=== PATIENT | male | born 1965 | race Hispanic/Latino ===

== ENCOUNTER 2017-06-14 23:09 | Inpatient (IN) | payer OTHER ==
[2017-06-14 23:13] VITALS: BMI 22.4
[2017-06-14] MEDS ORDERED: Sodium Chloride 0.9% 1,000 ML IV STA (23:37)
[2017-06-15 00:14] LABS: BASO % 0.1 % (0.0-2.0); EOS # 0.3 K/uL (0.0-0.7); EOS % 3.7 % (0.0-4.0); HEMOGLOBIN 8.6 g/dL (12.0-18.0); LYMPH # 0.3 K/uL (1.0-4.3); LYMPH % 3.2 % (20.0-40.0); MEAN CELL VOLUME 89.1 fl (80.0-94.0); MEAN CORPUSCULAR HEMOGLOBIN 29.3 pg (27.0-31.0); MEAN CORPUSCULAR HGB CONC 32.9 g/dL (33.0-37.0); MEAN PLATELET VOLUME 8.2 fl (7.2-11.7); MONO # 0.8 K/uL (0.0-0.8); MONO % 9.7 % (0.0-10.0); NEUT # 6.9 K/uL (1.8-7.0); NEUT % 83.3 % (50.0-75.0); PLATELET COUNT 127 K/uL (130-400); RBC 2.92 Mil/uL (4.40-5.90); RED CELL DISTRIBUTION WIDTH 18.8 % (11.5-14.5); WHITE BLOOD COUNT 8.3 K/uL (4.8-10.8)
[2017-06-15 00:23] LABS: BLOOD UREA NITROGEN 21 mg/dl (9-20); CALCIUM 9.5 mg/dL (8.4-10.2); GFR AFRICAN-AMERICAN > 60; GFR NON-AFRICAN AMERICAN > 60
[2017-06-15 00:25] LABS: INR 1.1 (0.9-1.2); PARTIAL THROMBOPLASTIN TIME 35.9 Seconds (25.6-37.1); PROTHROMBIN TIME 12.6 Seconds (9.8-13.1)
[2017-06-15] MEDS ORDERED: MethylPREDNISolone 40 mg Vial IVP SCH (01:00)
[2017-06-15] MEDS ORDERED: Lansinoh for Breast Feeding Mothers TP STA (01:05)
[2017-06-15] MEDS ORDERED: Sodium Chloride 0.9% 1,000 ML IV STA (01:10)
--- NOTE | 2017-06-15 01:13 | ED PDOC ---
Syncope/Near Syncope/Dizziness Time Seen by Provider: 06/14/17 23:18 Chief Complaint (Nursing): Syncope Chief Complaint (Provider): Syncope, Fall History Per: Patient, Family () History/Exam Limitations: no limitations Onset/Duration Of Symptoms: Sudden Onset Current Symptoms Are (Timing): Better Fall Associated With With Symptoms: Yes Additional Complaint(s): Roel Sigala is a 51 year old male with a past medical history of metastatic gall bladder cancer s/p chemotherapy, who presents to the emergency department for evaluation of syncope and fall prior to arrival. According to patient and , he was getting out of bed and felt dizzy, then thinks he fell on the floor but does not remember. Now complaining of pain to the neck, back of head, left arm, and left shoulder. Currently denies any chest pain or shortness of breath. Patient reports feeling generally weak, and for the past 2- 3 days has had difficulty moving his left arm on and off. Per , he has also had an unsteady gait and has had several falls this week, but this is the first one with a head injury. Yesterday he developed a rash all over his body, and was instructed to stop taking his Gabapentin. Patient last received chemotherapy in April 2017 at [facility]. PMD: Provider in [place] Oncologist: Dr. Frankel, [facility] Past Medical History Reviewed: Historical Data, Nursing Documentation, Vital Signs Vital Signs: Last Vital Signs Temp 98.4 F 06/14/17 23:14 Pulse 99 H 06/14/17 23:14 Resp 18 06/14/17 23:14 BP 106/79 06/14/17 23:14 Pulse Ox 100 06/14/17 23:14 - Medical History PMH: Deep Vein Thrombosis, HTN, Malignancy (gall bladder cancer with metastasis , on chemo), Pulmonary Embolism - Surgical History Surgical History: Cholecystectomy - Family History Family History: States: Unknown Family Hx - Home Medications Home Medications: Ambulatory Orders Medication Instructions Recorded Acetaminophen [Tylenol 325mg tab] 3 tab PO Q8 06/15/17 Celecoxib [celeBREX] 200 mg PO BID PRN 06/15/17 Cyclobenzaprine [Flexeril] 5 mg PO TID PRN 06/15/17 Docusate Sodium [Thao' 100 mg PO TID 06/15/17 Laxative] Fentanyl 1 each TD Q72 06/15/17 Gabapentin [Neurontin] 600 mg PO Q8 06/15/17 HYDROmorphone [Dilaudid] 4 mg PO Q4 PRN 06/15/17 Omeprazole [Omeprazole] 20 mg PO BID 06/15/17 Ondansetron [Zofran] 8 mg PO Q8 PRN 06/15/17 Polyethylene Glycol 3350 [Gavilax] 17 g PO DAILY 06/15/17 Rivaroxaban [Xarelto] 1 tab PO DAILY 06/15/17 Sennosides [Senna] 1 tab PO DAILY 06/15/17 Sucralfate [Carafate] 1 gm PO BID 06/15/17 - Allergies Allergies/Adverse Reactions: Allergies Allergy/AdvReac Type Severity Reaction Status Date / Time No Known Allergies Allergy Verified 06/14/17 23:13 Review of Systems ROS Statement: Except As Marked, All Systems Reviewed And Found Negative Constitutional: Positive for: Weakness (generalized) Cardiovascular: Negative for: Chest Pain Respiratory: Negative for: Shortness of Breath Gastrointestinal: Negative for: Melena, Hematochezia, Hematemesis Musculoskeletal: Positive for: Neck Pain, Shoulder Pain (left), Arm Pain (left) Skin: Positive for: Rash Neurological: Positive for: Weakness (to left arm), Incoordination (unsteady gait), Headache, Dizziness (with syncopal episode and fall) Physical Exam - Reviewed Nursing Documentation Reviewed: Yes Vital Signs Reviewed: Yes - Physical Exam Appears: Positive for: Non-toxic, No Acute Distress Head Exam: Positive for: NORMOCEPHALIC (w/ swelling to the occipital skull, non- tender, no laceration or bleeding). Negative for: ATRAUMATIC Skin: Positive for: Rash (diffuse macular rash to extremities and trunk) Eye Exam: Positive for: EOMI, Normal appearance, PERRL ENT: Positive for: Normal ENT Inspection Neck: Positive for: Pain On Movement Of Neck (with midline tenderness to c-spine ) Cardiovascular/Chest: Positive for: Regular Rate, Rhythm, Other (Port-a-cath in place at right chest). Negative for: Murmur Respiratory: Positive for: Normal Breath Sounds. Negative for: Accessory Muscle Use, Respiratory Distress Gastrointestinal/Abdominal: Positive for: Normal Exam, Soft. Negative for: Tenderness, Distended Back: Positive for: Normal Inspection. Negative for: Vertebral Tenderness Extremity: Positive for: Normal ROM, Other (Abrasion noted to left elbow). 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 Negative for: Aphasia, Facial Droop - Laboratory Results Result Diagrams: 06/15/17 00:11 06/15/17 00:11 - ECG ECG: Positive for: Interpreted By Me, Viewed By Me ECG Rhythm: Positive for: Normal QRS, Sinus Rhythm. Negative for: ST/T Changes Interpretation Of Abn EKG: Left Ventricular Hypertrophy Rate: 84 O2 Sat by Pulse Oximetry: 100 (RA) Pulse Ox Interpretation: Normal Medical Decision Making Medical Decision Making: Initial Impression: Syncope, Fall with Head Injury, Arm and Shoulder Injury, Weakness of Left Arm, Multiple Falls Differential includes: intracranial bleeding, cardiac arrhythmia, pulmonary embolism, dehydration, peripheral palsy in left arm, also concerned for fractures of left shoulder/arm, and metastasis to brain Time: 23:34 Initial Plan: --CT Head w/o contrast --CT Cervical Spine w/o contrast --EKG --BMP --Troponin I --CBC w/ differential --D dimer --PTT --Prothrombin time --NS IV 1000 ml at 1000 mls/hr --X-Ray Left Elbow --X-Ray Left Shoulder --Reevaluation CT Head FINDINGS: Brain: Unremarkable. No hemorrhage. No significant white matter disease. No edema. Ventricles: Unremarkable. No ventriculomegaly. Bones/joints: Unremarkable. No acute fracture. Soft tissues: Unremarkable. Sinuses: Unremarkable as visualized. No acute sinusitis. Mastoid air cells: Unremarkable as visualized. No mastoid effusion. IMPRESSION: No acute intracranial finding. Thank you for allowing us to participate in the care of your patient. Dictated and Authenticated by: Obi Sultana MD 06/15/2017 12:58 AM Eastern Time ([place] & [place]) CT Cervical Spine FINDINGS: Vertebrae: Unremarkable. No acute fracture. Discs/spinal canal/neural foramina: No acute findings. No spinal canal stenosis. Soft tissues: Unremarkable. Lung apices: Unremarkable as visualized. IMPRESSION: No acute cervical spine finding. Thank you for allowing us to participate in the care of your patient. Dictated and Authenticated by: Obi Sultana MD 06/15/2017 1:01 AM Eastern Time ([place] & [place]) Time: Patient will be hospitalized for observation for syncope, under the service of Dr. Valenzuela. Jamey is eleavated. Patient is currently already on Xarelto for DVT/PE treatment. Patient is admitted to telemetry. Scribe Attestation: Documented by Alejandra Dorman, acting as a scribe for Brandi Shelton MD Provider Scribe Attestation: All medical record entries made by the Scribe were at my direction and personally dictated by me. I have reviewed the chart and agree that the record accurately reflects my personal performance of the history, physical exam, medical decision making, and the department course for this patient. I have also personally directed, reviewed, and agree with the discharge instructions and disposition. Disposition - Clinical Impression Clinical Impression: Anemia, Syncope, Hyponatremia, Multiple falls, Shoulder injury, Left arm weakness - Patient ED Disposition Is Patient to be Admitted: Yes Discussed With : Tabatha Valenzuela Doctor Will See Patient In The: Hospital Counseled Patient/Family Regarding: Studies Performed, Diagnosis - Disposition Disposition Time: Condition: FAIR - Pt Status Changed To: Hospital Disposition Of: Observation - POA Present On Arrival: Falls Or Trauma
[2017-06-15 01:50] LABS: ANISOCYTOSIS SLIGHT; EOSINOPHIL 1 % (0-7); HYPOCHROMIC MODERATE; LYMPHOCYTE 2 % (20-50); MONOCYTE 3 % (0-10); NEUTROPHIL 94 % (42-75); OVALOCYTES SLIGHT; PLATELET ESTIMATE SLIGHTLY DECREASED (NORMAL); TOTAL CELLS COUNTED 100
[2017-06-15] MEDS ORDERED: Influenza Vaccine 18yr & older 0.5 ML/45 MCG SYR IM ONE (03:50)
[2017-06-15] MEDS: Sucralfate 1 gm/10 ml Oral Susp UD PO SCH ×2 (09:13→19:05)
[2017-06-15] MEDS: Pantoprazole 40 mg EC Tab PO SCH (09:14)
[2017-06-15] MEDS: POLYETHYLENE GLYCOL 3350 17 GM/Dose PACKET PO SCH (09:15)
--- NOTE | 2017-06-15 10:12 | CT ---
PROCEDURE: CT HEAD WITHOUT CONTRAST. HISTORY: syncope COMPARISON: None available. TECHNIQUE: Axial computed tomography images were obtained through the head/brain without intravenous contrast. Radiation dose: Total exam DLP = 1042.3 mGy-cm. This CT exam was performed using one or more of the following dose reduction techniques: Automated exposure control, adjustment of the mA and/or kV according to patient size, and/or use of iterative reconstruction technique. FINDINGS: HEMORRHAGE: No intracranial hemorrhage. BRAIN: No mass effect or edema. No atrophy or chronic microvascular ischemic changes. VENTRICLES: Unremarkable. No hydrocephalus. CALVARIUM: Unremarkable. PARANASAL SINUSES: Unremarkable as visualized. No significant inflammatory changes. MASTOID AIR CELLS: Unremarkable as visualized. No inflammatory changes. OTHER FINDINGS: None. IMPRESSION: No acute intracranial pathology.
--- NOTE | 2017-06-15 10:21 | CT ---
PROCEDURE: CT Cervical Spine without contrast HISTORY: <neck pain injury> COMPARISON: None available. TECHNIQUE: Axial computed tomography images were obtained of the cervical spine without the use of intravenous contrast. Coronal and sagittal reformatted images were created and reviewed. Radiation dose: Total exam DLP = 542.9 mGy-cm. This CT exam was performed using one or more of the following dose reduction techniques: Automated exposure control, adjustment of the mA and/or kV according to patient size, and/or use of iterative reconstruction technique. FINDINGS: VERTEBRAE: No fracture. Normal alignment. No destructive bony lesion. DISCS/SPINAL CANAL/NEURAL FORAMINA: No significant central canal or neural foraminal stenosis. Discs heights are grossly preserved. PARASPINAL SOFT TISSUES: Unremarkable. OTHER FINDINGS: 5 millimeter left apical lung nodule. Partially imaged right internal jugular access venous catheter. IMPRESSION: No acute fracture. 5 millimeter left apical lung nodule. Dedicated CT scan of the chest can be obtained for further evaluation as clinically warranted. ER notification submitted electronically.
[2017-06-15 10:41] LABS: HEMOGLOBIN 7.7 g/dL (12.0-18.0); MEAN CORPUSCULAR HGB CONC 32.3 g/dL (33.0-37.0); RBC 2.64 Mil/uL (4.40-5.90); RED CELL DISTRIBUTION WIDTH 19.2 % (11.5-14.5); WHITE BLOOD COUNT 7.9 K/uL (4.8-10.8)
[2017-06-15 10:54] LABS: ALBUMIN 2.8 g/dL (3.5-5.0)
[2017-06-15 10:58] LABS: ALB/GLOB RATIO 0.9 (1.0-2.1)
[2017-06-15 11:04] LABS: TROPONIN I 0.015 ng/mL (0.00-0.120)
--- NOTE | 2017-06-15 11:17 | CARD ---
APPROVED REPORT EXAM: Two-dimensional and M-mode echocardiogram with Doppler and color Doppler. INDICATION Syncope 2D DIMENSIONS IVSd1.48 (0.7-1.1cm)LVDd4.35 (3.9-5.9cm) PWd1.49 (0.7-1.1cm)IVSs1.73 (0.8-1.2cm) LVDs3.29 (2.5-4.0cm)FS (%) 24.5 % PWs2.04 (0.8-1.2cm)LVEF (%)55.0 (>50%) M-Mode DIMENSIONS Left Atrium (MM)3.20 (2.5-4.0cm)Aortic Root2.88 (2.2-3.7cm) Aortic Cusp Exc.1.28 (1.5-2.0cm) Mitral Valve MV E Sajhmiok40.5cm/sMV DECEL [id number] A Mxqtflhm00.7cm/s MV BII47xoU/A ratio0.8MVA (PHT)3.98cm2 TDI E/Lateral E'0.0E/Medial E'0.0 Tricuspid Valve TR Peak Jetntixb486ag/sRAP [id number] Peak Gr.10mmHg [id number] LEFT VENTRICLE The left ventricle is normal size. There is mild concentric left ventricular hypertrophy. The left ventricular function is normal. The left ventricular ejection fraction is within the normal range. There is normal LV segmental wall motion. Transmitral Doppler flow pattern is Grade I-abnormal relaxation pattern. RIGHT VENTRICLE The right ventricle is normal size. There is normal right ventricular wall thickness. The right ventricular systolic function is normal. ATRIA The left atrium size is normal. The right atrium size is normal. AORTIC VALVE The aortic valve is normal in structure. No aortic regurgitation is present. There is no aortic valvular stenosis. MITRAL VALVE The mitral valve is normal in structure. There is no mitral valve stenosis. There is no mitral valve regurgitation noted. TRICUSPID VALVE The tricuspid valve is normal in structure. There is no tricuspid valve regurgitation noted. PULMONIC VALVE The pulmonary valve is normal in structure. There is no pulmonic valvular regurgitation. GREAT VESSELS The aortic root is normal in size. The IVC was not visualized. PERICARDIAL EFFUSION The pericardium appears normal. <Conclusion> The left ventricle is normal size. There is mild concentric left ventricular hypertrophy. The left ventricular function is normal. The left ventricular ejection fraction is within the normal range. There is normal LV segmental wall motion. Transmitral Doppler flow pattern is Grade I-abnormal relaxation pattern.
--- NOTE | 2017-06-15 11:41 | RAD ---
PROCEDURE: Radiographs of the left elbow. HISTORY: elbow pain COMPARISON: No prior. FINDINGS: BONES: No acute fracture. JOINTS: Unremarkable bowl. SOFT TISSUES: Normal. JOINT EFFUSION: None. OTHER FINDINGS: Enthesophyte at the insertion of the triceps tendon IMPRESSION: No demonstrated fracture or dislocation.
--- NOTE | 2017-06-15 11:42 | RAD ---
PROCEDURE: Radiographs of the Left Shoulder HISTORY: shoulder pain COMPARISON: No prior. FINDINGS: BONES: No acute fracture. JOINTS: Unremarkable. SOFT TISSUES: Normal. OTHER FINDINGS: None. IMPRESSION: No demonstrated fracture or dislocation.
--- NOTE | 2017-06-15 16:30 | CP.PCM.HP ---
History of Present Illness - History of Present Illness History of Present Illness: CC:Passing out and AMS History of Present Illness: A 51 year old male with a past medical history of metastatic gall bladder cancer s/p chemotherapy, who presents to the emergency department for evaluation of syncope and fall prior to arrival. According to patient and , he was getting out of bed and felt dizzy, then thinks he fell on the floor but does not remember. He had similar kind of episodes of falls after feeling dizzy which happended with change of posture from sitting to standing. Now complaining of pain to the neck, back of head, left arm, and left shoulder. Currently denies any chest pain or shortness of breath. Patient reports feeling generally weak, and for the past 2-3 days has had difficulty moving his left arm on and off. Per , he has also had an unsteady gait and has had several falls this week, but this is the first one with a head injury. Yesterday he developed a rash all over his body which started on the upper trunk and arm which progressively involved the whole body., and was instructed to stop taking his Gabapentin. Patient last received chemotherapy in April 2017 at [facility]. As per the , His Cancer continued to progress depsite treatment [facility], and would like him to be transferred when he is stable.He had MRI of the brain done 1 week ago with no mets to the brain.The states she knows that the cancer has spread to the Liver, Lungs and bones. Present on Admission - Present on Admission Any Indicators Present on Admission: No History of DVT/PE: No History of Uncontrolled Diabetes: No Urinary Catheter: No Decubitus Ulcer Present: No Review of Systems - Review of Systems All systems: reviewed and no additional remarkable complaints except Review of Systems: as per HPI Past Patient History - Past Medical History & Family History Past Medical History?: Yes Past Family History: Reviewed and not pertinent - Past Social History Smoking Status: Light Smoker < 10 Cigarettes Daily Alcohol: Occasional Drugs: Denies - CARDIAC Hx Hypertension: Yes - PULMONARY Hx Pulmonary Embolism: Yes - HEMATOLOGICAL/ONCOLOGICAL Hx AIDS: No Hx Blood Transfusions: Yes Hx Blood Transfusion Reaction: No Hx Cancer: Yes (Satge IV Gallbladder Cancer) Hx Human Immunodeficiency Virus (HIV): No Other/Comment: DVT right leg - MUSCULOSKELETAL/RHEUMATOLOGICAL Hx Falls: Yes (Multiple) - GASTROINTESTINAL Other/Comment: metastatic gallbaldder cancer - PSYCHIATRIC Hx Substance Use: No - SURGICAL HISTORY Hx Cholecystectomy: Yes - ANESTHESIA Hx Anesthesia: Yes Hx Anesthesia Reactions: No Meds Allergies/Adverse Reactions: Allergies Allergy/AdvReac Type Severity Reaction Status Date / Time No Known Allergies Allergy Verified 06/14/17 23:13 Physical Exam - Constitutional Appears: In Acute Distress, Older Than Stated Age, Confused - Head Exam Head Exam: ATRAUMATIC, NORMAL INSPECTION, NORMOCEPHALIC - Eye Exam Eye Exam: EOMI, Normal appearance, PERRL - ENT Exam ENT Exam: Mucous Membranes Dry - Neck Exam Neck exam: Positive for: Full Rom - Respiratory Exam Respiratory Exam: Clear to Auscultation Bilateral, NORMAL BREATHING PATTERN - Cardiovascular Exam Cardiovascular Exam: Tachycardia, +S1, +S2 - GI/Abdominal Exam GI & Abdominal Exam: Soft. absent: Guarding, Rigid, Tenderness - Back Exam Back exam: rash noted - Neurological Exam Neurological exam: Abnormal Gait, Altered, Motor Sensory Deficit Additional comments: B/L LE, and Left Upper extremity weakness with Power 2-3/5. . - Psychiatric Exam Psychiatric exam: Anxious - Skin Skin Exam: Dry, Rash (Generalized Maculopapular rashes.) Results - Vital Signs Recent Vital Signs: Last Vital Signs Temp 97.4 F L 06/15/17 16:15 Pulse 93 H 06/15/17 16:15 Resp 16 06/15/17 16:15 BP 102/60 06/15/17 16:15 Pulse Ox 95 06/15/17 16:15 - Labs Result Diagrams: 06/19/17 04:25 06/19/17 04:25 Labs: Laboratory Results - last 24 hr 06/15/17 06/15/17 06/15/17 00:11 00:11 00:11 WBC 8.3 RBC 2.92 L Hgb 8.6 L Hct 26.0 L MCV 89.1 MCH 29.3 MCHC 32.9 L RDW 18.8 H Plt Count 127 L MPV 8.2 Neut % (Auto) 83.3 H Lymph % (Auto) 3.2 L [place] % (Auto) 9.7 Eos % (Auto) 3.7 Baso % (Auto) 0.1 Neut # 6.9 Lymph # 0.3 L [place] # 0.8 Eos # 0.3 Baso # 0.0 Neutrophils % (Manual) 94 H Lymphocytes % (Manual) 2 L Monocytes % (Manual) 3 Eosinophils % (Manual) 1 Platelet Estimate Slightly decreased L Hypochromasia (manual) Moderate Anisocytosis (manual) Slight Ovalocytes Slight PT 12.6 INR 1.1 APTT 35.9 D-Dimer, Quantitative 884 H Sodium 124 L Potassium 3.5 L Chloride 85 L Carbon Dioxide 31 H Anion Gap 12 BUN 21 H Creatinine 1.0 Est GFR ( Amer) > 60 Est GFR (Non-Af Amer) > 60 Random Glucose 111 H Calcium 9.5 Total Bilirubin AST ALT Alkaline Phosphatase Troponin I 0.0140 Total Protein Albumin Globulin Albumin/Globulin Ratio 06/15/17 06/15/17 10:35 10:35 WBC 7.9 RBC 2.64 L Hgb 7.7 L Hct 23.7 L MCV 90.0 MCH 29.0 MCHC 32.3 L RDW 19.2 H Plt Count 121 L MPV Neut % (Auto) Lymph % (Auto) [place] % (Auto) Eos % (Auto) Baso % (Auto) Neut # Lymph # [place] # Eos # Baso # Neutrophils % (Manual) Lymphocytes % (Manual) Monocytes % (Manual) Eosinophils % (Manual) Platelet Estimate Hypochromasia (manual) Anisocytosis (manual) Ovalocytes PT INR APTT D-Dimer, Quantitative Sodium 127 L Potassium 3.6 Chloride 92 L Carbon Dioxide 28 Anion Gap 11 BUN 21 H Creatinine 1.5 Est GFR ( Amer) 60 Est GFR (Non-Af Amer) 49 Random Glucose 109 Calcium 9.0 Total Bilirubin 0.8 AST 39 ALT 41 Alkaline Phosphatase 123 Troponin I 0.0150 Total Protein 5.9 L Albumin 2.8 L Globulin 3.2 Albumin/Globulin Ratio 0.9 L - Imaging and Cardiology CT scan - head Status: Report reviewed by me Additional comment: No Intracranial Acute Abnormality Assessment & Plan (1) Syncope Assessment and Plan: AMS, Recurrent Falls, Lower Extremities Weakness: Orthostatic Hypotension, Hyponatremia, R/O Brain Mets (Recent Brain MRI with no mets) Left Shoulder and Neck pain with Left Upper Extremity Weakness IVF Bolus and Maintenance Fluid with 0.9NS Sumaya Fall Precaution Serial Trop and EKG TTE MRI of C- Spine and Left Shoulder Monitor BMP Status: Acute Priority: High (2) Metastasis from gallbladder cancer Assessment and Plan: Wide spread Mets including the liver and Lungs Progressed despite Multiple Treatments Anemia most likely due to recent [place] and ACD Poor prognosis Will monitor H/H and transfuse if Hg drop<7 or at filling technician discretion Hem/Onc consulted Status: Acute Priority: High (3) Hyponatremia Assessment and Plan: IVF 0.9 NS Serum and Urine osmolality Monitor BMP Status: Acute Priority: High (4) History of pulmonary embolism Assessment and Plan: DVT; High D-Dimer (d0ne in the ER) Low dose of Xarelto CT Angio Chest R/O PE D/w the and agrees with the above discussed palns, and she would like to take her to [facility] After he is stabilized for Transfer Status: Acute Priority: Medium
[2017-06-15] MEDS ORDERED: DiphenhydrAMINE 50 mg/ml Inj IVP PRN (17:13)
--- NOTE | 2017-06-15 17:49 | CARD ---
APPROVED REPORT EKG Measurement Heart [id number] HI 130P [id number] <Conclusion> Normal sinus rhythm Voltage criteria for left ventricular hypertrophy Prolonged QT Abnormal ECG
[2017-06-15] MEDS ORDERED: Sodium Chloride 0.9% 50 ML IV ONE (19:23)
[2017-06-15] MEDS ORDERED: Iodixanol 320 MG/ML 100 ML BOTTLE IV ONE (19:23)
--- NOTE | 2017-06-15 20:17 | CP.PCM.CON ---
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 Frankel, admitted s/p fall, found to be anemic and thrombocytopenic. He was initially diagnosed and treated in 1991 but had recurred in 2013. The patient reports to chemotherapy about 2 weeks ago which consists of both oral and IV treatment. He does not remember the names of his treatment. He does admit to back and rib pain after his fall. He has no headache. He denies fevers and chills and has no abnormal bleeding and bruising. He does report to a rash over his body which may be from a medication he took. Past medical history: Stage IV cholangiocarcinoma Past surgical history: Portacath, cholecystectomy and liver resection Family history: Gallbladder cancer and mother and fathers side of the family Social history: 4 cigs daily, denies alcohol, and illicit drug use. Allergies: NKA Review of systems: All remaining review of systems including HEENT, cardiovascular, respiratory, gastrointestinal, genitourinary, musculoskeletal, dermatologic, neurologic, and psychiatric are negative unless mentioned in the HPI. Past Patient History - Past Medical History & Family History Past Medical History?: Yes - Past Social History Smoking Status: Light Smoker < 10 Cigarettes Daily - CARDIAC Hx Hypertension: Yes - PULMONARY Hx Pulmonary Embolism: Yes - HEMATOLOGICAL/ONCOLOGICAL Hx AIDS: No Hx Blood Transfusions: Yes Hx Blood Transfusion Reaction: No Hx Human Immunodeficiency Virus (HIV): No Other/Comment: DVT right leg - MUSCULOSKELETAL/RHEUMATOLOGICAL Hx Falls: Yes - GASTROINTESTINAL Other/Comment: metastatic gallbaldder cancer - PSYCHIATRIC Hx Substance Use: No - SURGICAL HISTORY Hx Cholecystectomy: Yes - ANESTHESIA Hx Anesthesia: Yes Hx Anesthesia Reactions: No Meds Allergies/Adverse Reactions: Allergies Allergy/AdvReac Type Severity Reaction Status Date / Time No Known Allergies Allergy Verified 06/14/17 23:13 - Medications Medications: Current Medications Acetaminophen (Tylenol 325mg Tab) 975 mg PO Q8@0600,1400,2200 [facility] Last Admin: 06/15/17 14:00 Dose: Not Given Cyclobenzaprine HCl (Flexeril) 5 mg PO TID PRN PRN Reason: Muscle spasm Last Admin: 06/15/17 09:17 Dose: 5 mg Diphenhydramine HCl (Benadryl) 25 mg IVP Q6 PRN PRN Reason: Itching / Pruritus Docusate Sodium (Colace) 100 mg PO TID [facility] Last Admin: 06/15/17 19:05 Dose: 100 mg Fentanyl (Duragesic) 1 patch TD Q72 [facility] Last Admin: 06/15/17 09:25 Dose: 1 patch Hydromorphone HCl (Dilaudid) 4 mg PO Q4 PRN PRN Reason: Pain, severe (8-10) Last Admin: 06/15/17 19:09 Dose: 4 mg Methylprednisolone (Solu-Medrol) 40 mg IVP Q8H [facility] Ondansetron HCl (Zofran Inj) 4 mg IVP Q6 PRN PRN Reason: Nausea/Vomiting Pantoprazole Sodium (Protonix Ec Tab) 40 mg PO DAILY [facility] Last Admin: 06/15/17 09:14 Dose: 40 mg Polyethylene Glycol (Miralax) 17 gm PO DAILY [facility] Last Admin: 06/15/17 09:15 Dose: 17 gm Rivaroxaban (Xarelto) 10 mg PO DAILY [facility] PRN Reason: Protocol Last Admin: 06/15/17 15:23 Dose: 10 mg Sennosides (Senokot Tab) 1 mg PO DAILY [facility] Last Admin: 06/15/17 09:00 Dose: Not Given Sucralfate (Carafate Oral Susp) 1 gm PO BID [facility] Last Admin: 06/15/17 19:05 Dose: 1 gm Physical Exam - Head Exam Head Exam: ATRAUMATIC - Eye Exam Eye Exam: Normal appearance - ENT Exam ENT Exam: Mucous Membranes Dry - Respiratory Exam Respiratory Exam: NORMAL BREATHING PATTERN - Cardiovascular Exam Cardiovascular Exam: +S1, +S2 - GI/Abdominal Exam GI & Abdominal Exam: Normal Bowel Sounds - Extremities Exam Extremities exam: Positive for: normal inspection - Psychiatric Exam Psychiatric exam: Depressed, Flat Affect - Skin Skin Exam: Warm Results - Vital Signs Recent Vital Signs: Last Vital Signs Temp 97.6 F 06/15/17 19:15 Pulse 91 H 06/15/17 19:15 Resp 20 06/15/17 19:15 BP 125/69 06/15/17 19:15 Pulse Ox 94 L 06/15/17 19:15 - Labs Result Diagrams: 06/15/17 10:35 06/15/17 10:35 Labs: Laboratory Results - last 24 hr 06/15/17 06/15/17 06/15/17 00:11 00:11 00:11 WBC 8.3 RBC 2.92 L Hgb 8.6 L Hct 26.0 L MCV 89.1 MCH 29.3 MCHC 32.9 L RDW 18.8 H Plt Count 127 L MPV 8.2 Neut % (Auto) 83.3 H Lymph % (Auto) 3.2 L [place] % (Auto) 9.7 Eos % (Auto) 3.7 Baso % (Auto) 0.1 Neut # 6.9 Lymph # 0.3 L [place] # 0.8 Eos # 0.3 Baso # 0.0 Neutrophils % (Manual) 94 H Lymphocytes % (Manual) 2 L Monocytes % (Manual) 3 Eosinophils % (Manual) 1 Platelet Estimate Slightly decreased L Hypochromasia (manual) Moderate Anisocytosis (manual) Slight Ovalocytes Slight PT 12.6 INR 1.1 APTT 35.9 D-Dimer, Quantitative 884 H Sodium 124 L Potassium 3.5 L Chloride 85 L Carbon Dioxide 31 H Anion Gap 12 BUN 21 H Creatinine 1.0 Est GFR ( Amer) > 60 Est GFR (Non-Af Amer) > 60 Random Glucose 111 H Calcium 9.5 Total Bilirubin AST ALT Alkaline Phosphatase Troponin I 0.0140 Total Protein Albumin Globulin Albumin/Globulin Ratio Blood Type Antibody Screen BBK History Checked 06/15/17 06/15/17 06/15/17 10:35 10:35 18:55 WBC 7.9 RBC 2.64 L Hgb 7.7 L Hct 23.7 L MCV 90.0 MCH 29.0 MCHC 32.3 L RDW 19.2 H Plt Count 121 L MPV Neut % (Auto) Lymph % (Auto) [place] % (Auto) Eos % (Auto) Baso % (Auto) Neut # Lymph # [place] # Eos # Baso # Neutrophils % (Manual) Lymphocytes % (Manual) Monocytes % (Manual) Eosinophils % (Manual) Platelet Estimate Hypochromasia (manual) Anisocytosis (manual) Ovalocytes PT INR APTT D-Dimer, Quantitative Sodium 127 L Potassium 3.6 Chloride 92 L Carbon Dioxide 28 Anion Gap 11 BUN 21 H Creatinine 1.5 Est GFR ( Amer) 60 Est GFR (Non-Af Amer) 49 Random Glucose 109 Calcium 9.0 Total Bilirubin 0.8 AST 39 ALT 41 Alkaline Phosphatase 123 Troponin I 0.0150 0.0170 Total Protein 5.9 L Albumin 2.8 L Globulin 3.2 Albumin/Globulin Ratio 0.9 L Blood Type Antibody Screen BBK History Checked 06/15/17 18:55 WBC RBC Hgb Hct MCV MCH MCHC RDW Plt Count MPV Neut % (Auto) Lymph % (Auto) [place] % (Auto) Eos % (Auto) Baso % (Auto) Neut # Lymph # [place] # Eos # Baso # Neutrophils % (Manual) Lymphocytes % (Manual) Monocytes % (Manual) Eosinophils % (Manual) Platelet Estimate Hypochromasia (manual) Anisocytosis (manual) Ovalocytes PT INR APTT D-Dimer, Quantitative Sodium Potassium Chloride Carbon Dioxide Anion Gap BUN Creatinine Est GFR ( Amer) Est GFR (Non-Af Amer) Random Glucose Calcium Total Bilirubin AST ALT Alkaline Phosphatase Troponin I Total Protein Albumin Globulin Albumin/Globulin Ratio Blood Type A POSITIVE Antibody Screen Negative BBK History Checked No verified bt Assessment & Plan (1) Anemia Assessment and Plan: will type and crossmatch 2 units if hgb < 8 tomorrow, will plan to transfuse retic count, b12, folate, ferritin, FOBT to further characterize may have an element of anemia from chemotherapy Status: Acute (2) Thrombocytopenia Assessment and Plan: may be related to recent chemotherapy Status: Acute (3) Cholangiocarcinoma Assessment and Plan: stage IV per patient, repoorts lung and liver metastasis on outpatient chemotherapy at [facility] outpatient f/u with primary oncologist Thank you for this interesting consult. Status: Acute
[2017-06-16] MEDS ORDERED: methylPREDNISolone 40 MG in Sodium Chloride 0.9% 50 ML IV SCH (01:00)
[2017-06-16 07:42] LABS: BASO % 0.2 % (0.0-2.0); EOS % 0.1 % (0.0-4.0); HEMOGLOBIN 7.5 g/dL (12.0-18.0); LYMPH # 0.2 K/uL (1.0-4.3); LYMPH % 2.1 % (20.0-40.0); MEAN CELL VOLUME 90.1 fl (80.0-94.0); MEAN CORPUSCULAR HEMOGLOBIN 28.8 pg (27.0-31.0); MEAN PLATELET VOLUME 8.4 fl (7.2-11.7); MONO # 0.2 K/uL (0.0-0.8); MONO % 2.6 % (0.0-10.0); NEUT # 8.2 K/uL (1.8-7.0); RBC 2.59 Mil/uL (4.40-5.90); RED CELL DISTRIBUTION WIDTH 19.1 % (11.5-14.5); WHITE BLOOD COUNT 8.7 K/uL (4.8-10.8)
[2017-06-16] MEDS: Sucralfate 1 gm/10 ml Oral Susp UD PO SCH ×2 (09:21→17:40)
[2017-06-16] MEDS: Pantoprazole 40 mg EC Tab PO SCH (09:22)
[2017-06-16] MEDS: POLYETHYLENE GLYCOL 3350 17 GM/Dose PACKET PO SCH (09:22)
[2017-06-16] MEDS: MethylPREDNISolone 40 mg Vial IVP SCH ×2 (09:23→17:40)
[2017-06-16 11:41] LABS: FOLATE 6.2 ng/mL
--- NOTE | 2017-06-16 14:03 | CT ---
PROCEDURE: CT Chest with contrast (Pulmonary Angiogram) HISTORY: R/O PE COMPARISON: None available. TECHNIQUE: Axial computed tomography images were obtained of the chest in the pulmonary arterial phase of enhancement. Coronal and sagittal reformatted images were created and reviewed. Intravenous contrast dose: Visipaque 320, 80 cc. Radiation dose: Total exam DLP = 449.63 mGy-cm. This CT exam was performed using one or more of the following dose reduction techniques: Automated exposure control, adjustment of the mA and/or kV according to patient size, and/or use of iterative reconstruction technique. FINDINGS: PULMONARY ARTERIES: Unremarkable. No pulmonary embolism. AORTA: No acute findings. No thoracic aortic aneurysm. LUNGS: Numerous pulmonary nodules are scattered bilaterally which are nonspecific. There is a bright broad differs diagnosis many from infectious or inflammatory causes or even neoplasm. Further clinical correlation is advised these nodules appear quite small, generally under 1 cm greatest dimension. However, there is a 1.3 x 1.2 cm spiculated nodule at superior segment right lower lobe in image 58 series 5 suspicious for neoplasm and metastatic disease is favored. There is compressive atelectasis related to the left pleural effusion. Underlying infiltrate is not excluded. Remaining lung schilling are otherwise clear. Central airways appear clear. No dominant mass is appreciable. PLEURAL SPACES: A moderate left pleural effusions identified, trace on the right. Trace pericardial effusion is identified. HEART: Unremarkable. No cardiomegaly. LYMPH NODES: Mild left hilar adenopathy is appreciate including a 1.3 x 2.2 cm left perihilar lymph node. BONES, CHEST WALL: Unremarkable. No fracture or destructive lesion OTHER FINDINGS: Right-sided life port catheter in position with tip of catheter terminating at the right atrium. 6.7 x 4.7 cm lucent lesion right lobe liver inferiorly, suspicious for metastatic lesion. Prior cholecystectomy. IMPRESSION: 1. No CT evidence to suggest pulmonary embolus at this time. 2. Metastatic disease is scattered throughout the bilateral lung schilling with dominant nodule appearing at the superior segment right lower lobe 1.3 cm greatest dimension. Left hilar adenopathy is mild. 3. Moderate left pleural effusion exerting compression atelectasis the left lower lobe with underlying infiltrate not completely excluded. 4. 6.7 cm likely metastasis right lobe liver. 5. Prior cholecystectomy.
[2017-06-16 16:16] LABS: ALB/GLOB RATIO 0.9 (1.0-2.1); CALCIUM 9.3 mg/dL (8.4-10.2)
--- NOTE | 2017-06-17 00:12 | CP.PCM.PN ---
Subjective - Date & Time of Evaluation Date of Evaluation: 06/16/17 Time of Evaluation: 13:10 - Subjective Subjective: Seen and examined at the bed side. No change since the admission. Patient is too weak to be discharged and kidney function abnormality which will need further monitoring. Objective - Vital Signs/Intake and Output Vital Signs (last 24 hours): Temp Pulse Resp BP Pulse Ox 97.9 F 79 18 138/78 95 06/17/17 00:09 06/17/17 00:09 06/17/17 00:09 06/17/17 00:09 06/17/17 00:09 - Medications Medications: Current Medications Acetaminophen (Tylenol 325mg Tab) 975 mg PO Q8@0600,1400,2200 [facility] Last Admin: 06/16/17 21:29 Dose: 975 mg Cyclobenzaprine HCl (Flexeril) 5 mg PO TID PRN PRN Reason: Muscle spasm Last Admin: 06/16/17 09:23 Dose: 5 mg Diphenhydramine HCl (Benadryl) 25 mg IVP Q6 PRN PRN Reason: Itching / Pruritus Last Admin: 06/15/17 21:48 Dose: 25 mg Docusate Sodium (Colace) 100 mg PO TID [facility] Last Admin: 06/16/17 17:40 Dose: 100 mg Fentanyl (Duragesic) 1 patch TD Q72 [facility] Last Admin: 06/15/17 09:25 Dose: 1 patch Hydromorphone HCl (Dilaudid) 4 mg PO Q4 PRN PRN Reason: Pain, severe (8-10) Last Admin: 06/16/17 21:28 Dose: 4 mg Methylprednisolone (Solu-Medrol) 40 mg IVP Q8 [facility] Last Admin: 06/16/17 17:40 Dose: 40 mg Ondansetron HCl (Zofran Inj) 4 mg IVP Q6 PRN PRN Reason: Nausea/Vomiting Pantoprazole Sodium (Protonix Ec Tab) 40 mg PO DAILY [facility] Last Admin: 06/16/17 09:22 Dose: 40 mg Polyethylene Glycol (Miralax) 17 gm PO DAILY [facility] Last Admin: 06/16/17 09:22 Dose: 17 gm Rivaroxaban (Xarelto) 10 mg PO DAILY [facility] PRN Reason: Protocol Last Admin: 06/16/17 09:23 Dose: 10 mg Sennosides (Senokot Tab) 8.6 mg PO DAILY [facility] Last Admin: 06/16/17 09:22 Dose: 8.6 mg Sucralfate (Carafate Oral Susp) 1 gm PO BID [facility] Last Admin: 06/16/17 17:40 Dose: 1 gm - Labs Labs: 06/16/17 06:00 06/16/17 14:48 PT 12.6 Seconds (9.8-13.1) 06/15/17 00:11 INR 1.1 (0.9-1.2) 06/15/17 00:11 APTT 35.9 Seconds (25.6-37.1) 06/15/17 00:11 - Constitutional Appears: Older Than Stated Age, Confused, Chronically Ill - Head Exam Head Exam: ATRAUMATIC, NORMAL INSPECTION, NORMOCEPHALIC - Eye Exam Eye Exam: EOMI - Neck Exam Neck Exam: absent: Lymphadenopathy, Tenderness - Respiratory Exam Respiratory Exam: Clear to Ausculation Bilateral, NORMAL BREATHING PATTERN. absent: Rales - Cardiovascular Exam Cardiovascular Exam: Tachycardia, +S1, +S2 - GI/Abdominal Exam GI & Abdominal Exam: Soft. absent: Tenderness Additional comments: Midline healed surgical Scar - Extremities Exam Extremities Exam: Normal Capillary Refill. absent: Tenderness Additional comments: B/L Weakness - Neurological Exam Neurological Exam: Altered, CN II-XII Intact, Motor Sensory Deficit - Psychiatric Exam Psychiatric exam: Anxious, Flat Affect - Skin Skin Exam: absent: Rash Assessment and Plan (1) Syncope Assessment & Plan: AMS, Recurrent Falls, Lower Extremities Weakness: Orthostatic Hypotension, Hyponatremia, R/O Brain Mets (Recent Brain MRI with no mets) Left Shoulder and Neck pain with Left Upper Extremity Weakness IVF Bolus and Maintenance Fluid with 0.9NS Sumaya Fall Precaution Serial Trop and EKG TTE MRI of C- Spine and Left Shoulder- Patient did not tolerate MRI, and aborrted for now Monitor BMP PT/OT Status: Acute Priority: High (2) Metastasis from gallbladder cancer Assessment and Plan: Wide spread Mets including the liver and Lungs Progressed despite Multiple Treatments Anemia most likely due to recent Chemo and ACD Poor prognosis Will monitor H/H and transfuse if Hg drop<7 or 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
[2017-06-17] MEDS: MethylPREDNISolone 40 mg Vial IVP SCH ×3 (01:20→17:00)
--- NOTE | 2017-06-17 02:26 | CP.PCM.PN ---
Subjective - Date & Time of Evaluation Date of Evaluation: 06/16/17 Time of Evaluation: 18:00 - Subjective Subjective: Feels weak. Objective - Vital Signs/Intake and Output Vital Signs (last 24 hours): Temp Pulse Resp BP Pulse Ox 97.9 F 79 18 138/78 95 06/17/17 00:09 06/17/17 00:09 06/17/17 00:09 06/17/17 00:09 06/17/17 00:09 - Medications Medications: Current Medications Acetaminophen (Tylenol 325mg Tab) 975 mg PO Q8@0600,1400,2200 [facility] Last Admin: 06/16/17 21:29 Dose: 975 mg Cyclobenzaprine HCl (Flexeril) 5 mg PO TID PRN PRN Reason: Muscle spasm Last Admin: 06/16/17 09:23 Dose: 5 mg Diphenhydramine HCl (Benadryl) 25 mg IVP Q6 PRN PRN Reason: Itching / Pruritus Last Admin: 06/15/17 21:48 Dose: 25 mg Docusate Sodium (Colace) 100 mg PO TID [facility] Last Admin: 06/16/17 17:40 Dose: 100 mg Fentanyl (Duragesic) 1 patch TD Q72 [facility] Last Admin: 06/15/17 09:25 Dose: 1 patch Hydromorphone HCl (Dilaudid) 4 mg PO Q4 PRN PRN Reason: Pain, severe (8-10) Last Admin: 06/17/17 01:25 Dose: 4 mg Methylprednisolone (Solu-Medrol) 40 mg IVP Q8 [facility] Last Admin: 06/17/17 01:20 Dose: 40 mg Ondansetron HCl (Zofran Inj) 4 mg IVP Q6 PRN PRN Reason: Nausea/Vomiting Pantoprazole Sodium (Protonix Ec Tab) 40 mg PO DAILY [facility] Last Admin: 06/16/17 09:22 Dose: 40 mg Polyethylene Glycol (Miralax) 17 gm PO DAILY [facility] Last Admin: 06/16/17 09:22 Dose: 17 gm Rivaroxaban (Xarelto) 10 mg PO DAILY [facility] PRN Reason: Protocol Last Admin: 06/16/17 09:23 Dose: 10 mg Sennosides (Senokot Tab) 8.6 mg PO DAILY [facility] Last Admin: 06/16/17 09:22 Dose: 8.6 mg Sucralfate (Carafate Oral Susp) 1 gm PO BID [facility] Last Admin: 06/16/17 17:40 Dose: 1 gm - Labs Labs: 06/16/17 06:00 06/16/17 14:48 PT 12.6 Seconds (9.8-13.1) 06/15/17 00:11 INR 1.1 (0.9-1.2) 06/15/17 00:11 APTT 35.9 Seconds (25.6-37.1) 06/15/17 00:11 - Head Exam Head Exam: ATRAUMATIC - Eye Exam Eye Exam: Normal appearance - ENT Exam ENT Exam: Mucous Membranes Dry - Respiratory Exam Respiratory Exam: NORMAL BREATHING PATTERN - Cardiovascular Exam Cardiovascular Exam: +S1, +S2 - GI/Abdominal Exam GI & Abdominal Exam: Normal Bowel Sounds Assessment and Plan (1) Anemia Assessment & Plan: chronic disease from malignancy and recent chemotherapy to receive 2U PRBC today Status: Acute (2) Thrombocytopenia Assessment & Plan: recent chemotherapy Status: Acute (3) Cholangiocarcinoma Assessment & Plan: stage IV liver and lung mets outpatient treatment with primary oncologist. Status: Acute
[2017-06-17] MEDS: Pantoprazole 40 mg EC Tab PO SCH (08:19)
[2017-06-17] MEDS: Sucralfate 1 gm/10 ml Oral Susp UD PO SCH ×2 (08:20→17:00)
[2017-06-17] MEDS: POLYETHYLENE GLYCOL 3350 17 GM/Dose PACKET PO SCH (09:13)
[2017-06-17 09:47] LABS: MEAN CELL VOLUME 87.3 fl (80.0-94.0); MEAN CORPUSCULAR HEMOGLOBIN 28.4 pg (27.0-31.0); MEAN CORPUSCULAR HGB CONC 32.6 g/dL (33.0-37.0); RBC 3.8 Mil/uL (4.40-5.90); RED CELL DISTRIBUTION WIDTH 18.3 % (11.5-14.5); WHITE BLOOD COUNT 21.8 K/uL (4.8-10.8)
[2017-06-17 10:06] LABS: HEMOGLOBIN 10.8 g/dL (12.0-18.0)
[2017-06-17] MEDS: Sodium Chloride 0.9% 1,000 ML IV SCH ×2 (14:21→22:23)
[2017-06-17 17:30] LABS: CALCIUM 9.8 mg/dL (8.4-10.2)
--- NOTE | 2017-06-17 21:08 | CP.PCM.PN ---
Subjective - Date & Time of Evaluation Date of Evaluation: 06/17/17 Time of Evaluation: 13:20 - Subjective Subjective: Seen and examined at the bed side. Hem/Onc input appreciated. Hgb further dropped to 7.5, and transfused 2 Units of PRBCs. Patient is confused and calling when I asked him about her when she was not around. PT evaluated him and too weak and recommended Acute Rehab. As per the nurse, he ate fairly. +Urinary Incontinence.Patient was started on Steroid for body rash, and improved significantly today. Objective - Vital Signs/Intake and Output Vital Signs (last 24 hours): Temp Pulse Resp BP Pulse Ox 97.8 F 93 H 18 164/90 H 93 L 06/17/17 19:21 06/17/17 19:21 06/17/17 19:21 06/17/17 19:21 06/17/17 19:21 Intake and Output: 06/17/17 06/18/17 18:59 06:59 Intake Total 1705 Output Total 500 Balance 1205 - Medications Medications: Current Medications Acetaminophen (Tylenol 325mg Tab) 975 mg PO Q8@0600,1400,2200 [facility] Last Admin: 06/17/17 13:00 Dose: 975 mg Cyclobenzaprine HCl (Flexeril) 5 mg PO TID PRN PRN Reason: Muscle spasm Last Admin: 06/17/17 08:15 Dose: 5 mg Diphenhydramine HCl (Benadryl) 25 mg IVP Q6 PRN PRN Reason: Itching / Pruritus Last Admin: 06/15/17 21:48 Dose: 25 mg Docusate Sodium (Colace) 100 mg PO TID [facility] Last Admin: 06/17/17 17:00 Dose: 100 mg Fentanyl (Duragesic) 1 patch TD Q72 [facility] Last Admin: 06/15/17 09:25 Dose: 1 patch Hydromorphone HCl (Dilaudid) 4 mg PO Q4 PRN PRN Reason: Pain, severe (8-10) Last Admin: 06/17/17 06:03 Dose: 4 mg Sodium Chloride (Sodium Chloride 0.9%) 1,000 mls @ 125 mls/hr IV .Q8H [facility] Stop: 06/18/17 14:10 Last Admin: 06/17/17 14:21 Dose: 125 mls/hr Methylprednisolone (Solu-Medrol) 40 mg IVP Q8 [facility] Last Admin: 06/17/17 17:00 Dose: 40 mg Ondansetron HCl (Zofran Inj) 4 mg IVP Q6 PRN PRN Reason: Nausea/Vomiting Pantoprazole Sodium (Protonix Ec Tab) 40 mg PO DAILY [facility] Last Admin: 06/17/17 08:19 Dose: 40 mg Polyethylene Glycol (Miralax) 17 gm PO DAILY [facility] Last Admin: 06/17/17 09:13 Dose: 17 gm Rivaroxaban (Xarelto) 10 mg PO DAILY [facility] PRN Reason: Protocol Last Admin: 06/17/17 09:15 Dose: 10 mg Sennosides (Senokot Tab) 8.6 mg PO DAILY [facility] Last Admin: 06/17/17 08:17 Dose: 8.6 mg Sucralfate (Carafate Oral Susp) 1 gm PO BID [facility] Last Admin: 06/17/17 17:00 Dose: 1 gm - Labs Labs: 06/17/17 09:11 06/17/17 16:32 PT 12.6 Seconds (9.8-13.1) 06/15/17 00:11 INR 1.1 (0.9-1.2) 06/15/17 00:11 APTT 35.9 Seconds (25.6-37.1) 06/15/17 00:11 - Constitutional Appears: Older Than Stated Age, Confused, Chronically Ill - Head Exam Head Exam: ATRAUMATIC, NORMAL INSPECTION, NORMOCEPHALIC - Eye Exam Eye Exam: EOMI, PERRL. absent: Nystagmus, Periorbital tenderness Pupil Exam: NORMAL ACCOMODATION, PERRL - ENT Exam ENT Exam: Mucous Membranes Dry - Neck Exam Neck Exam: Normal Inspection. absent: Meningismus, Tenderness - Respiratory Exam Respiratory Exam: Clear to Ausculation Bilateral. absent: Rales, Wheezes Additional comments: Glenny Cath chest - Cardiovascular Exam Cardiovascular Exam: REGULAR RHYTHM, +S1, +S2 - GI/Abdominal Exam GI & Abdominal Exam: Soft. absent: Guarding, Rigid, Tenderness - Extremities Exam Extremities Exam: Normal Capillary Refill. absent: Calf Tenderness, Joint Swelling - Back Exam Back Exam: NORMAL INSPECTION - Neurological Exam Neurological Exam: Altered, CN II-XII Intact, Motor Sensory Deficit - Psychiatric Exam Psychiatric exam: Anxious, Depressed, Flat Affect - Skin Skin Exam: Rash Assessment and Plan (1) Syncope Assessment & Plan: AMS, Recurrent Falls, Lower Extremities Weakness: Orthostatic Hypotension, Hyponatremia, R/O Brain Mets (Recent Brain MRI with no mets) Left Shoulder and Neck pain with Left Upper Extremity Weakness IVF Bolus and Maintenance Fluid with 0.9NS Sumaya Fall Precaution Serial Trop and EKG TTE MRI of C- Spine and Left Shoulder- Patient did not tolerate MRI, and aborrted for now Monitor BMP PT/OT Status: Acute Priority: High (2) Metastasis from gallbladder cancer Assessment and Plan: Wide spread Mets including the liver and Lungs Progressed despite Multiple Treatments Anemia most likely due to recent [place] and ACD Poor prognosis Will monitor H/H and transfuse if Hg drop<7 or 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
--- NOTE | 2017-06-17 22:26 | CP.PCM.PN ---
Subjective - Date & Time of Evaluation Date of Evaluation: 06/17/17 Time of Evaluation: 17:00 - Subjective Subjective: Appears comfortable s/p 2U PRBC creatinine cont. to rise Objective - Vital Signs/Intake and Output Vital Signs (last 24 hours): Temp Pulse Resp BP Pulse Ox 97.8 F 93 H 18 164/90 H 93 L 06/17/17 19:21 06/17/17 19:21 06/17/17 19:21 06/17/17 19:21 06/17/17 19:21 Intake and Output: 06/17/17 06/18/17 18:59 06:59 Intake Total 1705 Output Total 500 Balance 1205 - Medications Medications: Current Medications Acetaminophen (Tylenol 325mg Tab) 975 mg PO Q8@0600,1400,2200 [facility] Last Admin: 06/17/17 22:22 Dose: 975 mg Cyclobenzaprine HCl (Flexeril) 5 mg PO TID PRN PRN Reason: Muscle spasm Last Admin: 06/17/17 08:15 Dose: 5 mg Diphenhydramine HCl (Benadryl) 25 mg IVP Q6 PRN PRN Reason: Itching / Pruritus Last Admin: 06/15/17 21:48 Dose: 25 mg Docusate Sodium (Colace) 100 mg PO TID [facility] Last Admin: 06/17/17 17:00 Dose: 100 mg Fentanyl (Duragesic) 1 patch TD Q72 [facility] Last Admin: 06/15/17 09:25 Dose: 1 patch Hydromorphone HCl (Dilaudid) 4 mg PO Q4 PRN PRN Reason: Pain, severe (8-10) Last Admin: 06/17/17 06:03 Dose: 4 mg Sodium Chloride (Sodium Chloride 0.9%) 1,000 mls @ 125 mls/hr IV .Q8H [facility] Stop: 06/18/17 14:10 Last Admin: 06/17/17 22:23 Dose: 125 mls/hr Methylprednisolone (Solu-Medrol) 40 mg IVP Q8 [facility] Last Admin: 06/17/17 17:00 Dose: 40 mg Ondansetron HCl (Zofran Inj) 4 mg IVP Q6 PRN PRN Reason: Nausea/Vomiting Pantoprazole Sodium (Protonix Ec Tab) 40 mg PO DAILY [facility] Last Admin: 06/17/17 08:19 Dose: 40 mg Polyethylene Glycol (Miralax) 17 gm PO DAILY [facility] Last Admin: 06/17/17 09:13 Dose: 17 gm Rivaroxaban (Xarelto) 10 mg PO DAILY [facility] PRN Reason: Protocol Last Admin: 06/17/17 09:15 Dose: 10 mg Sennosides (Senokot Tab) 8.6 mg PO DAILY [facility] Last Admin: 06/17/17 08:17 Dose: 8.6 mg Sucralfate (Carafate Oral Susp) 1 gm PO BID [facility] Last Admin: 06/17/17 17:00 Dose: 1 gm - Labs Labs: 06/17/17 09:11 06/17/17 16:32 PT 12.6 Seconds (9.8-13.1) 06/15/17 00:11 INR 1.1 (0.9-1.2) 06/15/17 00:11 APTT 35.9 Seconds (25.6-37.1) 06/15/17 00:11 - Head Exam Head Exam: ATRAUMATIC - Eye Exam Eye Exam: Normal appearance - ENT Exam ENT Exam: Mucous Membranes Dry - Respiratory Exam Respiratory Exam: NORMAL BREATHING PATTERN - Cardiovascular Exam Cardiovascular Exam: +S1, +S2 - GI/Abdominal Exam GI & Abdominal Exam: Normal Bowel Sounds Assessment and Plan (1) Anemia Assessment & Plan: chronic disease, chemotherapy s/p 2U PRBC rising creatinine ? anemia of renal disease; consider nephrology evaluation Status: Acute (2) Thrombocytopenia Assessment & Plan: improved chemotherapy effect Status: Acute (3) Cholangiocarcinoma Assessment & Plan: stage IV outpatient treatment Status: Acute
[2017-06-18] MEDS: MethylPREDNISolone 40 mg Vial IVP SCH ×3 (01:27→16:30)
[2017-06-18] MEDS: Sodium Chloride 0.9% 1,000 ML IV SCH (06:16)
[2017-06-18 08:35] LABS: CALCIUM 9.6 mg/dL (8.4-10.2)
[2017-06-18] MEDS: Sucralfate 1 gm/10 ml Oral Susp UD PO SCH ×2 (09:10→16:31)
[2017-06-18] MEDS: Pantoprazole 40 mg EC Tab PO SCH (09:11)
[2017-06-18] MEDS: POLYETHYLENE GLYCOL 3350 17 GM/Dose PACKET PO SCH (09:11)
[2017-06-18 10:13] LABS: HEMOGLOBIN 9.9 g/dL (12.0-18.0); MEAN CELL VOLUME 88.6 fl (80.0-94.0); MEAN CORPUSCULAR HEMOGLOBIN 28.9 pg (27.0-31.0); MEAN CORPUSCULAR HGB CONC 32.7 g/dL (33.0-37.0); RBC 3.41 Mil/uL (4.40-5.90); RED CELL DISTRIBUTION WIDTH 17.8 % (11.5-14.5); WHITE BLOOD COUNT 16.8 K/uL (4.8-10.8)
[2017-06-18] MEDS ORDERED: Sod Polystyrene Sulf 15 gm/60 ml Susp PO ONE (12:23)
[2017-06-18] MEDS ORDERED: Sodium Chloride 0.9% 1,000 ML IV SCH (12:24)
--- NOTE | 2017-06-18 15:44 | CP.PCM.CON ---
History of Present Illness - History of Present Illness History of Present Illness: is a 51 year old male with a history of stage IV cholangiocarcino, lung and liver mets on unknown chemotherapy at [facility] [facility] with Dr. Frankel , admitted s/p fall, found to be anemic and thrombocytopenic. The patient reports to chemotherapy about 2 weeks ago which consists of both oral and IV treatment, the names of which he does not know. Neurology was consulted to assess patients 48 hour change in mental status. On examination, with witnessing, the patient was tangential, and encephalopathic. He could name some objects but had paraphasic errors, and was repeating questions i was asking of him. 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 On exam, he became short of breath and he desat'd down to 97% o2 saturation. Therefore, I requested abg and ekg and these test are presently being conducted. Past medical history: Stage IV cholangiocarcinoma Past surgical history: Portacath, cholecystectomy and liver resection Family history: Gallbladder cancer and mother and fathers side of the family Social history: 4 cigs daily, denies alcohol, and illicit drug use. Allergies: NKA Review of systems: All remaining review of systems including HEENT, cardiovascular, respiratory, gastrointestinal, genitourinary, musculoskeletal, dermatologic, neurologic, and psychiatric are negative unless mentioned in the HPI. On exam: AAOX1. Pupils 3mm-2mm with light. EOMI. No facial asymmetry. Cn 2-12 normal. gag normal. strength: normal and symmetric. Cannot test sensory exam. Speech: fluent but tangential. Paraphasic errors, repeats normallly. Follows commands, but encephalopathic. Gait : not tested. +1 dtr ul and ll bl. Toes downgoing. No clonus. Past Patient History - Past Medical History & Family History Past Medical History?: Yes - Past Social History Smoking Status: Light Smoker < 10 Cigarettes Daily - CARDIAC Hx Hypertension: Yes - PULMONARY Hx Pulmonary Embolism: Yes - HEMATOLOGICAL/ONCOLOGICAL Hx AIDS: No Hx Blood Transfusions: Yes Hx Blood Transfusion Reaction: No Hx Human Immunodeficiency Virus (HIV): No Other/Comment: DVT right leg - MUSCULOSKELETAL/RHEUMATOLOGICAL Hx Falls: Yes - GASTROINTESTINAL Other/Comment: metastatic gallbaldder cancer - PSYCHIATRIC Hx Substance Use: No - SURGICAL HISTORY Hx Cholecystectomy: Yes - ANESTHESIA Hx Anesthesia: Yes Hx Anesthesia Reactions: No Meds Allergies/Adverse Reactions: Allergies Allergy/AdvReac Type Severity Reaction Status Date / Time No Known Allergies Allergy Verified 06/14/17 23:13 - Medications Medications: Current Medications Acetaminophen (Tylenol 325mg Tab) 975 mg PO Q8@0600,1400,2200 [facility] Last Admin: 06/18/17 13:41 Dose: 975 mg Cyclobenzaprine HCl (Flexeril) 5 mg PO TID PRN PRN Reason: Muscle spasm Last Admin: 06/17/17 08:15 Dose: 5 mg Diphenhydramine HCl (Benadryl) 25 mg IVP Q6 PRN PRN Reason: Itching / Pruritus Last Admin: 06/15/17 21:48 Dose: 25 mg Docusate Sodium (Colace) 100 mg PO TID [facility] Last Admin: 06/18/17 13:36 Dose: 100 mg Hydromorphone HCl (Dilaudid) 4 mg PO Q4 PRN PRN Reason: Pain, severe (8-10) Last Admin: 06/18/17 14:17 Dose: 4 mg Lorazepam (Ativan) 1 mg IVP ONCE ONE Stop: 06/18/17 14:28 Methylprednisolone (Solu-Medrol) 40 mg IVP Q8 [facility] Last Admin: 06/18/17 09:12 Dose: 40 mg Ondansetron HCl (Zofran Inj) 4 mg IVP Q6 PRN PRN Reason: Nausea/Vomiting Pantoprazole Sodium (Protonix Ec Tab) 40 mg PO DAILY [facility] Last Admin: 06/18/17 09:11 Dose: 40 mg Polyethylene Glycol (Miralax) 17 gm PO DAILY [facility] Last Admin: 06/18/17 09:11 Dose: 17 gm Rivaroxaban (Xarelto) 10 mg PO DAILY [facility] PRN Reason: Protocol Last Admin: 06/18/17 09:12 Dose: 10 mg Sennosides (Senokot Tab) 8.6 mg PO DAILY [facility] Last Admin: 06/18/17 09:11 Dose: 8.6 mg Sucralfate (Carafate Oral Susp) 1 gm PO BID [facility] Last Admin: 06/18/17 09:10 Dose: 1 gm Results - Vital Signs Recent Vital Signs: Last Vital Signs Temp 98 F 06/18/17 12:00 Pulse 88 06/18/17 13:00 Resp 18 06/18/17 12:00 BP 161/94 H 06/18/17 13:00 Pulse Ox 91 L 06/18/17 12:00 - Labs Result Diagrams: 06/18/17 09:48 06/18/17 08:10 Labs: Laboratory Results - last 24 hr 06/17/17 06/18/17 06/18/17 16:32 08:10 09:48 WBC 16.8 H RBC 3.41 L Hgb 9.9 L Hct 30.2 L MCV 88.6 MCH 28.9 MCHC 32.7 L RDW 17.8 H Plt Count 105 L D Sodium 129 L 130 L Potassium 5.1 H 5.4 H Chloride 93 L 94 L Carbon Dioxide 24 24 Anion Gap 17 17 BUN 54 H 66 H Creatinine 4.5 H 4.8 H Est GFR ( Amer) 17 16 Est GFR (Non-Af Amer) 14 13 Random Glucose 153 H 118 H Calcium 9.8 9.6 Total Creatine Kinase 06/18/17 12:39 WBC RBC Hgb Hct MCV MCH MCHC RDW Plt Count Sodium Potassium Chloride Carbon Dioxide Anion Gap BUN Creatinine Est GFR ( Amer) Est GFR (Non-Af Amer) Random Glucose Calcium Total Creatine Kinase 31 L Assessment & Plan - Assessment and Plan (Free Text) Assessment: 51 yr old male with what appears to be encephalopathy, either metabolic or toxic, could be postictal but is in respiratory distress. PLan; 1. MRI BRain when stable. 2. Airway stabilization now. 3. Ammonia level, and amylase l ipase 4. EEG 5. ABG, EKG, as patient has prior history of PE.
[2017-06-18 16:09] LABS: ABG ALLEN TEST YES; ARTERIAL BLOOD GAS HCO3 23.8 mmol/L (21-28); ARTERIAL BLOOD GAS HEMOGLOBIN 11.2 g/dL (11.7-17.4); ARTERIAL BLOOD GAS O2 CAPACITY 15.3 mL/dL (16-24); ARTERIAL BLOOD GAS O2 CONTENT 14.8 ML/dL (15-23); ARTERIAL BLOOD GAS PCO2 40 mm/Hg (35-45); ARTERIAL BLOOD GAS PH 7.38 (7.35-7.45); ARTERIAL BLOOD GAS PO2 76 mm/Hg (80-100); ARTERIAL BLOOD GAS TCO2 24.9 mmol/L (22-28)
--- NOTE | 2017-06-18 17:13 | RAD ---
HISTORY: new shortness of breath COMPARISON: 06/15/2017. CT thorax for pulmonary angiogram. FINDINGS: LUNGS: Progressive consolidative changes left lung. PLEURA: Persistent left pleural effusion difficult to quantify given the marked progression of consolidative changes primarily affecting the left lower lobe. CARDIOVASCULAR: No radiographic findings to suggest acute or significant cardiovascular disease. Venous access catheter in satisfactory position. OSSEOUS STRUCTURES: No significant abnormalities. VISUALIZED UPPER ABDOMEN: Normal. OTHER FINDINGS: None. IMPRESSION: Marked progression of left lower lobe infiltrate.
--- NOTE | 2017-06-18 18:56 | CP.PCM.CON ---
History of Present Illness - History of Present Illness History of Present Illness: Initial Nephrology Consultation: Assessment: critical Acute Kidney Injury (N17.9) likely due to urine retention and contrast exposure Hyponatremia, hyperkalemia Anemia and thrombocytopenia altered mental status stage IV cholangiocarcinoma with lung and liver metastasis Plan No acute need for renal replacement therapy at this time. kayexylate ordered. since UOP good after catheter insertion, anticipate improvement in renal function over next few days. d/w that if renal function doesn't improved spontaneously in next few days, dialysis may be indicated. she said if he needs it, then it should be done. Hypertension control with meds as ordered. Patient not on ACEI/ARB due to EMILIE Monitor Input/Output, daily weights and renal function with basic metabolic panel Check renal/bladder sonogram Dose meds/antibiotics for reduced GFR. Avoid fleets enema/magnesium based laxatives. Avoid nephrotoxins/NSAIDs/ iodinated contrast (unless needed emergently) Glycemic control Further work up/management as per primary team Thanks for allowing me to participate in care of your patient. Will follow patient with you. Please call if any Qs. d/w team and Dr Elmer Hernandez Office: [phone] Chief Complaint; unable HPI: Pt is a 51 M with hx of stage IV cholangiocarcinoma with lung and liver metastasis presented with complaints of fall and near syncope. he had an CTA on 06/15/17 and since then cr has been rising hence renal consulted. concepcion catheter placed 06/18/17 drained close to 2 L urine soon after. pt has been confused/ delirious. he also developed a skin rash had recent iodinated contrast exposure. No obvious episodes of low BP. ROS: unable Physical Examination: General Appearance: uncomfortable, in no acute respiratory distress, ill appearing Vitals reviewed and noted as below Head; Atraumatic, normocephalic ENT: no ulcers no thrush. Tongue is midline. Oropharynx: no rash or ulcers. EYES: Pupils are equal, round and reactive to light accommodation. Eye muscles and extraocular movement intact. Sclera is anicteric. Neck; supple no lymphadenopathy, no thyromegaly or bruit Lungs: Normal respiratory rate/effort. Breath sounds bilateral equal and clear Heart: Normal rate. s1s2 normal. No rub or gallop. Extremities: no edema. No varicose veins Neurological: Patient is delirious Skin: Warm and dry. Normal turgor. No rash. Palpitation: Normal elasticity for age Abdomen: Abdomen is soft. Bowel sounds +. There is no abdominal tenderness, no guarding/rigidity no organomegaly Psych: lack insight rest deferred MSK: no joint tenderness or swelling. Digits and nails normal, no deformity : kidney or bladder not palpable. had concepcion Labs/imaging reviewed. Past medical history, past surgical history, family history, social history, allergy reviewed and noted as below Family hx: no hx of CKD. Rest non-contributory Past Patient History - Past Medical History & Family History Past Medical History?: Yes - Past Social History Smoking Status: Light Smoker < 10 Cigarettes Daily - CARDIAC Hx Hypertension: Yes - PULMONARY Hx Pulmonary Embolism: Yes - HEMATOLOGICAL/ONCOLOGICAL Hx AIDS: No Hx Blood Transfusions: Yes Hx Blood Transfusion Reaction: No Hx Human Immunodeficiency Virus (HIV): No Other/Comment: DVT right leg - MUSCULOSKELETAL/RHEUMATOLOGICAL Hx Falls: Yes - GASTROINTESTINAL Other/Comment: metastatic gallbaldder cancer - PSYCHIATRIC Hx Substance Use: No - SURGICAL HISTORY Hx Cholecystectomy: Yes - ANESTHESIA Hx Anesthesia: Yes Hx Anesthesia Reactions: No Meds Allergies/Adverse Reactions: Allergies Allergy/AdvReac Type Severity Reaction Status Date / Time No Known Allergies Allergy Verified 06/14/17 23:13 - Medications Medications: Current Medications Acetaminophen (Tylenol 325mg Tab) 975 mg PO Q8@0600,1400,2200 [facility] Last Admin: 06/18/17 13:41 Dose: 975 mg Cyclobenzaprine HCl (Flexeril) 5 mg PO TID PRN PRN Reason: Muscle spasm Last Admin: 06/17/17 08:15 Dose: 5 mg Diphenhydramine HCl (Benadryl) 25 mg IVP Q6 PRN PRN Reason: Itching / Pruritus Last Admin: 06/15/17 21:48 Dose: 25 mg Docusate Sodium (Colace) 100 mg PO TID [facility] Last Admin: 06/18/17 16:30 Dose: Not Given Hydromorphone HCl (Dilaudid) 4 mg PO Q4 PRN PRN Reason: Pain, severe (8-10) Last Admin: 06/18/17 14:17 Dose: 4 mg Azithromycin 500 mg/ Sodium (Chloride) 250 mls @ 250 mls/hr IVPB DAILY [facility] PRN Reason: Protocol Piperacillin Sod/Tazobactam (Sod 2.25 gm/ Sodium Chloride) 100 mls @ 100 mls/ hr IVPB Q8 [facility] PRN Reason: Protocol Methylprednisolone (Solu-Medrol) 40 mg IVP Q8 [facility] Last Admin: 06/18/17 16:30 Dose: 40 mg Ondansetron HCl (Zofran Inj) 4 mg IVP Q6 PRN PRN Reason: Nausea/Vomiting Pantoprazole Sodium (Protonix Ec Tab) 40 mg PO DAILY [facility] Last Admin: 06/18/17 09:11 Dose: 40 mg Polyethylene Glycol (Miralax) 17 gm PO DAILY [facility] Last Admin: 06/18/17 09:11 Dose: 17 gm Rivaroxaban (Xarelto) 10 mg PO DAILY [facility] PRN Reason: Protocol Last Admin: 06/18/17 09:12 Dose: 10 mg Sennosides (Senokot Tab) 8.6 mg PO DAILY [facility] Last Admin: 06/18/17 09:11 Dose: 8.6 mg Sucralfate (Carafate Oral Susp) 1 gm PO BID [facility] Last Admin: 06/18/17 16:31 Dose: Not Given Results - Vital Signs Recent Vital Signs: Last Vital Signs Temp 97.9 F 06/18/17 17:00 Pulse 90 06/18/17 17:00 Resp 18 06/18/17 17:00 BP 168/84 H 06/18/17 17:00 Pulse Ox 94 L 06/18/17 17:00 - Labs Result Diagrams: 06/18/17 09:48 06/18/17 08:10 Labs: Laboratory Results - last 24 hr 06/18/17 06/18/17 06/18/17 08:10 09:48 12:39 WBC 16.8 H RBC 3.41 L Hgb 9.9 L Hct 30.2 L MCV 88.6 MCH 28.9 MCHC 32.7 L RDW 17.8 H Plt Count 105 L D pCO2 pO2 HCO3 ABG pH ABG Total CO2 ABG O2 Saturation ABG O2 Content ABG Base Excess ABG Hemoglobin ABG Carboxyhemoglobin POC ABG HHb (Measured) ABG Methemoglobin ABG O2 Capacity Preston Test A-a O2 Difference Hgb O2 Saturation FiO2 Sodium 130 L Potassium 5.4 H Chloride 94 L Carbon Dioxide 24 Anion Gap 17 BUN 66 H Creatinine 4.8 H Est GFR ( Amer) 16 Est GFR (Non-Af Amer) 13 Random Glucose 118 H Calcium 9.6 Ammonia Total Creatine Kinase 31 L 06/18/17 06/18/17 16:03 17:46 WBC RBC Hgb Hct MCV MCH MCHC RDW Plt Count pCO2 40 pO2 76 L HCO3 23.8 ABG pH 7.38 ABG Total CO2 24.9 ABG O2 Saturation 97.0 ABG O2 Content 14.8 L ABG Base Excess -1.3 ABG Hemoglobin 11.2 L ABG Carboxyhemoglobin 2.3 H POC ABG HHb (Measured) 2.9 ABG Methemoglobin 1.4 ABG O2 Capacity 15.3 L Preston Test Yes A-a O2 Difference 124.0 Hgb O2 Saturation 93.4 L FiO2 35.0 Sodium Potassium Chloride Carbon Dioxide Anion Gap BUN Creatinine Est GFR ( Amer) Est GFR (Non-Af Amer) Random Glucose Calcium Ammonia < 9 L Total Creatine Kinase
--- NOTE | 2017-06-18 19:34 | PCM.RRT ---
<Luke Bob - Last Filed: 06/18/17 19:48> [employer] Nurse Assessment - Situation [employer]CH[employer] Responder Arrival Time: 19:10 Location: telemetry Room Number: 401-2 [employer] Reason for Call: Change in Mental Status [employer]CH[employer] Called By: RN - Respiratory Oxygen Delivery Method: Nasal Cannula @L/min (4) - Head Head Exam: NORMAL INSPECTION - Eyes Eye Exam: EOMI. absent: Nystagmus - Respiratory Exam Respiratory Exam: Clear to Ausculation Bilateral - Cardiovascular Exam Cardiovascular Exam: Tachycardia, REGULAR RHYTHM - GI/Abdominal Exam GI & Abdominal Exam: Soft. absent: Distended - Neurological Exam Neurological Exam: absent: Alert, Oriented x3 Additional exam: Weakness in L arm and leg, decreased sensation on L arm and leg. Plan - Assessment of Findings&Treatment Plan [employer]CH[employer] called by RN due to altered mental status. 51 yo M patient with PMH of stage IV Cholangiocarcinoma, lung and liver mets, EMILIE with AMS and fixed vision to the right side. Also incoherent/slurred speech noted. No recent fever,vomiting, chest pain or sob, no seizure,abdominal pain, diarrhea. VS: BP 199/85 HR 102 O2sat: 93% Impression: Altered mental status, r/o stroke. cbc cmp abg troponin EKG Head CT w/o contrast. Hospitalist: Bob Chavez Residents: Dr Vilchis PGY 2 Dr Bob PGY 1. <Steve Townsend - Last Filed: 06/19/17 19:43> [employer] Nurse Assessment - Vital Signs Vital Signs: Rapid Response Vital Sign Blood Pressure 199/85 Pulse Rate 97 Respiratory Rate 30 Oxygen Saturation 92 - Vital Signs at end of [employer] Vital Signs at end of [employer]CH[employer]: Rapid Response End Vital Sign Blood Pressure 198/80 Pulse Rate 83 Respiratory Rate 30 O2 Sat by Pulse Oximetry 93 Attending/Attestation - Attestation I have personally seen and examined this patient.: No I have fully participated in the care of the patient.: No I have reviewed all pertinent clinical information, including history, physical exam and plan: No Notes (Text): 06/19/17 19:26 I saw and examined this patient shoulder to shoulder with Dr Bob. the Assessment and Plan reflect my direct input. The SOUN[employer]CR[employer]CH[employer]IC was called because the patient appeared more confused than previously. Examination found a tonic rotation of the head to the right with the eyes fixed looking to the right. The patient was moving the right upper extremity but the left up0per extremity was motor strength 0/5. He was moving both lower extremities and having unintelligible speech. Blood Glucose was within normal limits, PCO2 was 55 with mild respiratory acidosis . Stat CT of head : Showed no bleed nor infarction. We would expect CT signs of Brain Infarction within 12 -24 hours. Labs: CBC/ CMP/ Troponin I&P #. R/O Right CVA with left side weakness - Neurology on consult - MRI of head and MRA of head and Neck were ordered by Neurology for AM - Neuro checks #. Respiratory failure with Hypercarbia and Hypoxia - Patient placed on BIPAP - ABG to be followed
[2017-06-18 19:42] LABS: BASO % 0.2 % (0.0-2.0); LYMPH # 0.2 K/uL (1.0-4.3); LYMPH % 1.2 % (20.0-40.0); MEAN CELL VOLUME 89.6 fl (80.0-94.0); MEAN CORPUSCULAR HEMOGLOBIN 28.5 pg (27.0-31.0); MEAN CORPUSCULAR HGB CONC 31.8 g/dL (33.0-37.0); MEAN PLATELET VOLUME 8.2 fl (7.2-11.7); MONO # 0.8 K/uL (0.0-0.8); NEUT % 94.6 % (50.0-75.0); NRBC % 0.1 % (0.0-0.0); PLATELET COUNT 121 K/uL (130-400); RBC 3.52 Mil/uL (4.40-5.90); RED CELL DISTRIBUTION WIDTH 18.2 % (11.5-14.5); WHITE BLOOD COUNT 19.1 K/uL (4.8-10.8)
[2017-06-18 19:44] LABS: ALB/GLOB RATIO 0.9 (1.0-2.1); ALBUMIN 3.2 g/dL (3.5-5.0); CALCIUM 9.4 mg/dL (8.4-10.2)
[2017-06-18 19:51] LABS: ABG ALLEN TEST YES; ARTERIAL BLOOD GAS HCO3 23.1 mmol/L (21-28); ARTERIAL BLOOD GAS HEMOGLOBIN 10.5 g/dL (11.7-17.4); ARTERIAL BLOOD GAS O2 CAPACITY 14.3 mL/dL (16-24); ARTERIAL BLOOD GAS O2 CONTENT 13.1 ML/dL (15-23); ARTERIAL BLOOD GAS O2 SAT 91.9 % (95-98); ARTERIAL BLOOD GAS PCO2 55 mm/Hg (35-45); ARTERIAL BLOOD GAS PH 7.27 (7.35-7.45); ARTERIAL BLOOD GAS PO2 62 mm/Hg (80-100)
[2017-06-18 19:54] LABS: TROPONIN I 0.065 ng/mL (0.00-0.120)
[2017-06-18 20:55] LABS: LYMPHOCYTE 1 % (20-50); MONOCYTE 2 % (0-10); NEUTROPHIL 97 % (42-75); PLATELET ESTIMATE DECREASED (NORMAL); TOTAL CELLS COUNTED 100
[2017-06-18 20:56] LABS: ANISOCYTOSIS SLIGHT; OVALOCYTES SLIGHT
[2017-06-18 22:16] LABS: SQUAMOUS EPITHIAL < 1 /hpf (0-5); URINE BILIRUBIN NEGATIVE (NEGATIVE); URINE BLOOD LARGE (NEGATIVE); URINE CLARITY CLOUDY (Clear); URINE COLOR YELLOW (YELLOW); URINE GLUCOSE (UA) NEG (Normal); URINE LEUKOCYTE ESTERASE NEG Leu/uL (Negative); URINE NITRATE NEGATIVE (NEGATIVE); URINE PROTEIN 100 mg/dL (NEGATIVE); URINE UROBILINOGEN 0.2-1.0 mg/dL (0.2-1.0)
[2017-06-18 22:26] LABS: CREATININE, RANDOM URINE 47.1 mg/dL
--- NOTE | 2017-06-18 23:17 | CP.PCM.PN ---
Subjective - Date & Time of Evaluation Date of Evaluation: 06/18/17 Time of Evaluation: 09:00 - Subjective Subjective: Appears comfortable Objective - Vital Signs/Intake and Output Vital Signs (last 24 hours): Temp Pulse Resp BP Pulse Ox 98.5 F 92 H 16 184/91 H 94 L 06/18/17 20:47 06/18/17 20:47 06/18/17 20:47 06/18/17 20:47 06/18/17 20:47 Intake and Output: 06/18/17 06/19/17 18:59 06:59 Intake Total 1150 Output Total 1800 Balance -650 - Medications Medications: Current Medications Acetaminophen (Tylenol 325mg Tab) 975 mg PO Q8@0600,1400,2200 [facility] Last Admin: 06/18/17 21:30 Dose: Not Given Cyclobenzaprine HCl (Flexeril) 5 mg PO TID PRN PRN Reason: Muscle spasm Last Admin: 06/17/17 08:15 Dose: 5 mg Diphenhydramine HCl (Benadryl) 25 mg IVP Q6 PRN PRN Reason: Itching / Pruritus Last Admin: 06/15/17 21:48 Dose: 25 mg Docusate Sodium (Colace) 100 mg PO TID [facility] Last Admin: 06/18/17 16:30 Dose: Not Given Hydromorphone HCl (Dilaudid) 4 mg PO Q4 PRN PRN Reason: Pain, severe (8-10) Last Admin: 06/18/17 14:17 Dose: 4 mg Azithromycin 500 mg/ Sodium (Chloride) 250 mls @ 250 mls/hr IVPB DAILY [facility] PRN Reason: Protocol Piperacillin Sod/Tazobactam (Sod 2.25 gm/ Sodium Chloride) 100 mls @ 100 mls/ hr IVPB Q8 [facility] PRN Reason: Protocol Methylprednisolone (Solu-Medrol) 40 mg IVP Q8 [facility] Last Admin: 06/18/17 16:30 Dose: 40 mg Ondansetron HCl (Zofran Inj) 4 mg IVP Q6 PRN PRN Reason: Nausea/Vomiting Pantoprazole Sodium (Protonix Ec Tab) 40 mg PO DAILY [facility] Last Admin: 06/18/17 09:11 Dose: 40 mg Polyethylene Glycol (Miralax) 17 gm PO DAILY [facility] Last Admin: 06/18/17 09:11 Dose: 17 gm Rivaroxaban (Xarelto) 10 mg PO DAILY [facility] PRN Reason: Protocol Last Admin: 06/18/17 09:12 Dose: 10 mg Sennosides (Senokot Tab) 8.6 mg PO DAILY [facility] Last Admin: 06/18/17 09:11 Dose: 8.6 mg Sucralfate (Carafate Oral Susp) 1 gm PO BID [facility] Last Admin: 06/18/17 16:31 Dose: Not Given - Labs Labs: 06/18/17 19:30 06/18/17 19:30 PT 12.6 Seconds (9.8-13.1) 06/15/17 00:11 INR 1.1 (0.9-1.2) 06/15/17 00:11 APTT 35.9 Seconds (25.6-37.1) 06/15/17 00:11 - Head Exam Head Exam: ATRAUMATIC - Eye Exam Eye Exam: Normal appearance - ENT Exam ENT Exam: Mucous Membranes Dry - Respiratory Exam Respiratory Exam: NORMAL BREATHING PATTERN - Cardiovascular Exam Cardiovascular Exam: +S1, +S2 - GI/Abdominal Exam GI & Abdominal Exam: Normal Bowel Sounds Assessment and Plan (1) Anemia Assessment & Plan: chronic disease, recent chemo s/p PRBC transfusion Status: Acute (2) Thrombocytopenia Assessment & Plan: mild may be related to recent chemo cont. to monitor Status: Acute (3) Cholangiocarcinoma Assessment & Plan: stage IV outpatient treatment with primary oncologist Status: Acute
[2017-06-18] MEDS ORDERED: Chlorhexidine Gluconate 1 APPL/PKT TP ONE (23:37)
--- NOTE | 2017-06-18 23:55 | CP.PCM.PN ---
Subjective - Date & Time of Evaluation Date of Evaluation: 06/18/17 Time of Evaluation: 13:50 - Subjective Subjective: Seen and examined at the bed side. His at the bed side. Patient has been incontinent but worsening Creatinine.Stat Antony Placed and urine Output 2000cc immediately, and 500cc in the next 30minutes.. Patient continued to be confused and disoriented. I have spoken to the spouse, about the poor prognosis and if anybody spoke to her in the past about palliative or hospice care. She denied about any such conversation in the past with anybody, and she asked if he was that sick. I have explained the Multiple Mets on the CT chest to the Lungs and Liver which she ois aware. Also Exaplained to her about the Acute Renal Failure which is most likely to be Urinary Retention ?Etiology. Besides IVF, stat MRI of the L-and T spines requested which may help us diagnose spinal lesion explaining the Weakness in Extremities, and Acute Urinary Retention. Neurologist and Neurologist consulted for further Monitoring. Objective - Vital Signs/Intake and Output Vital Signs (last 24 hours): Temp Pulse Resp BP Pulse Ox 98.5 F 92 H 16 184/91 H 94 L 06/18/17 20:47 06/18/17 20:47 06/18/17 20:47 06/18/17 20:47 06/18/17 20:47 Intake and Output: 06/18/17 06/19/17 18:59 06:59 Intake Total 1150 Output Total 1800 Balance -650 - Medications Medications: Current Medications Acetaminophen (Tylenol 325mg Tab) 975 mg PO Q8@0600,1400,2200 [facility] Last Admin: 06/18/17 21:30 Dose: Not Given Cyclobenzaprine HCl (Flexeril) 5 mg PO TID PRN PRN Reason: Muscle spasm Last Admin: 06/17/17 08:15 Dose: 5 mg Diphenhydramine HCl (Benadryl) 25 mg IVP Q6 PRN PRN Reason: Itching / Pruritus Last Admin: 06/15/17 21:48 Dose: 25 mg Docusate Sodium (Colace) 100 mg PO TID [facility] Last Admin: 06/18/17 16:30 Dose: Not Given Hydromorphone HCl (Dilaudid) 4 mg PO Q4 PRN PRN Reason: Pain, severe (8-10) Last Admin: 06/18/17 14:17 Dose: 4 mg Azithromycin 500 mg/ Sodium (Chloride) 250 mls @ 250 mls/hr IVPB DAILY [facility] PRN Reason: Protocol Piperacillin Sod/Tazobactam (Sod 2.25 gm/ Sodium Chloride) 100 mls @ 100 mls/ hr IVPB Q8 [facility] PRN Reason: Protocol Methylprednisolone (Solu-Medrol) 40 mg IVP Q8 [facility] Last Admin: 06/18/17 16:30 Dose: 40 mg Ondansetron HCl (Zofran Inj) 4 mg IVP Q6 PRN PRN Reason: Nausea/Vomiting Pantoprazole Sodium (Protonix Ec Tab) 40 mg PO DAILY [facility] Last Admin: 06/18/17 09:11 Dose: 40 mg Polyethylene Glycol (Miralax) 17 gm PO DAILY [facility] Last Admin: 06/18/17 09:11 Dose: 17 gm Rivaroxaban (Xarelto) 10 mg PO DAILY [facility] PRN Reason: Protocol Last Admin: 06/18/17 09:12 Dose: 10 mg Sennosides (Senokot Tab) 8.6 mg PO DAILY [facility] Last Admin: 06/18/17 09:11 Dose: 8.6 mg Sucralfate (Carafate Oral Susp) 1 gm PO BID [facility] Last Admin: 06/18/17 16:31 Dose: Not Given - Labs Labs: 06/18/17 19:30 06/18/17 19:30 PT 12.6 Seconds (9.8-13.1) 06/15/17 00:11 INR 1.1 (0.9-1.2) 06/15/17 00:11 APTT 35.9 Seconds (25.6-37.1) 06/15/17 00:11 - Constitutional Appears: Older Than Stated Age, Confused, Chronically Ill - Head Exam Head Exam: ATRAUMATIC, NORMAL INSPECTION, NORMOCEPHALIC - ENT Exam ENT Exam: Mucous Membranes Dry - Neck Exam Neck Exam: Full ROM, Normal Inspection - Respiratory Exam Respiratory Exam: NORMAL BREATHING PATTERN. absent: Rales, Rhonchi, Wheezes - Cardiovascular Exam Cardiovascular Exam: REGULAR RHYTHM, +S1, +S2 - GI/Abdominal Exam GI & Abdominal Exam: Distended. absent: Tenderness - Neurological Exam Neurological Exam: Altered, Motor Sensory Deficit - Psychiatric Exam Psychiatric exam: Anxious - Skin Skin Exam: Dry Assessment and Plan (1) Metastasis from gallbladder cancer Assessment & Plan: AMS, Recurrent Falls, Lower Extremities Weakness: Orthostatic Hypotension, Hyponatremia, R/O Brain Mets (Recent Brain MRI with no mets) Left Shoulder and Neck pain with Left Upper Extremity Weakness IVF Bolus and Maintenance Fluid with 0.9NS Normal Saline Fall Precaution Serial Trop and EKG TTE MRI of C- Spine and Left Shoulder- Patient did not tolerate MRI, and aborted for now Monitor BMP PT/OT Status: Acute Priority: High (2) Metastasis from gallbladder cancer Assessment and Plan: Wide spread Mets including the liver and Lungs Progressed despite Multiple Treatments Anemia most likely due to recent [place] and ACD Poor prognosis Will monitor H/H and transfuse if Hg drop<7 or at cloth spreader discretion Hem/Onc consulted Status: Acute Priority: High (3) Hyponatremia improved from 124 to 127-130 Assessment and Plan: Continue IVF 0.9 NS Serum and Urine osmolality Monitor BMP Status: Acute Priority: High (4) History of pulmonary embolism DVT; High D-Dimer (d0ne in the ER) Low dose of Xarelto CT Angio Chest R/O PE D/w the and agrees with the above discussed palns, and she would like to take her to [facility] After he is stabilized for Transfer (5) Generalized Rashes, ?Reaction to Medication Assessment and Plan: Improving Continue IV steroid (6) Acute Renal Failure Most Likely due to Obstructive Uropathy; Hyperkalemia, Acute Urinary Retention R/o Spinal lesion Continue Antony Cath, and IVF Monitor I&O, and BMP [facility] Consult D/W the Spouse, , and about all the above. Status: Acute
[2017-06-19 00:36] VITALS: RESP 20
[2017-06-19] MEDS: MethylPREDNISolone 40 mg Vial IVP SCH (02:29)
[2017-06-19 05:45] VITALS: O2SAT 96
[2017-06-19 06:08] LABS: HEMOGLOBIN 9.8 g/dL (12.0-18.0); MEAN CELL VOLUME 89.6 fl (80.0-94.0); MEAN CORPUSCULAR HEMOGLOBIN 28.5 pg (27.0-31.0); MEAN CORPUSCULAR HGB CONC 31.8 g/dL (33.0-37.0); RBC 3.44 Mil/uL (4.40-5.90); RED CELL DISTRIBUTION WIDTH 18.3 % (11.5-14.5); WHITE BLOOD COUNT 17.3 K/uL (4.8-10.8)
[2017-06-19 06:27] LABS: CALCIUM 9.4 mg/dL (8.4-10.2)
[2017-06-19 06:58] LABS: ABG ALLEN TEST YES; ARTERIAL BLOOD GAS HCO3 30.3 mmol/L (21-28); ARTERIAL BLOOD GAS HEMOGLOBIN 7.8 g/dL (11.7-17.4); ARTERIAL BLOOD GAS O2 CAPACITY 11.1 mL/dL (16-24); ARTERIAL BLOOD GAS O2 CONTENT 11.1 ML/dL (15-23); ARTERIAL BLOOD GAS PCO2 30 mm/Hg (35-45); ARTERIAL BLOOD GAS PH 7.59 (7.35-7.45); ARTERIAL BLOOD GAS PO2 180 mm/Hg (80-100); ARTERIAL BLOOD GAS TCO2 29.7 mmol/L (22-28)
[2017-06-19] MEDS ORDERED: Morphine 4 MG/ML VIAL IVP PRN (08:13)
[2017-06-19 08:33] VITALS: BP 173/84; PULSE 99; TEMP 100.6
[2017-06-19] MEDS ORDERED: Azithromycin 500 MG in Sodium Chloride 0.9% 250 ML IVPB SCH (09:00)
--- NOTE | 2017-06-19 09:04 | CP.PCM.PN ---
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 Tongue is midline. Oropharynx: no rash or ulcers. EYES: Pupils are equal, round and reactive to light accommodation. Eye muscles and extraocular movement intact. Sclera is anicteric. Neck; supple no lymphadenopathy, no thyromegaly or bruit Lungs: Normal respiratory rate/effort. Breath sounds bilateral equal and clear Heart: Normal rate. s1s2 normal. No rub or gallop. Extremities: no edema. No varicose veins Neurological: Patient is delirious Skin: Warm and dry. Normal turgor. No rash. Palpitation: Normal elasticity for age Abdomen: Abdomen is soft. Bowel sounds +. There is no abdominal tenderness, no guarding/rigidity no organomegaly Psych: lack insight rest deferred MSK: no joint tenderness or swelling. Digits and nails normal, no deformity : kidney or bladder not palpable. + concepcion Objective - Vital Signs/Intake and Output Vital Signs (last 24 hours): Temp Pulse Resp BP Pulse Ox 100.6 F H 99 H 20 173/84 H 96 06/19/17 08:00 06/19/17 08:00 06/19/17 08:00 06/19/17 08:00 06/19/17 08:00 - Medications Medications: Current Medications Acetaminophen (Tylenol 325mg Tab) 975 mg PO Q8@0600,1400,2200 [facility] Last Admin: 06/18/17 21:30 Dose: Not Given Cyclobenzaprine HCl (Flexeril) 5 mg PO TID PRN PRN Reason: Muscle spasm Last Admin: 06/17/17 08:15 Dose: 5 mg Diphenhydramine HCl (Benadryl) 25 mg IVP Q6 PRN PRN Reason: Itching / Pruritus Last Admin: 06/15/17 21:48 Dose: 25 mg Docusate Sodium (Colace) 100 mg PO TID [facility] Last Admin: 06/18/17 16:30 Dose: Not Given Azithromycin 500 mg/ Sodium (Chloride) 250 mls @ 250 mls/hr IVPB DAILY [facility] PRN Reason: Protocol Piperacillin Sod/Tazobactam (Sod 2.25 gm/ Sodium Chloride) 100 mls @ 100 mls/ hr IVPB Q8 [facility] PRN Reason: Protocol Last Admin: 06/19/17 02:31 Dose: 100 mls/hr Lorazepam (Ativan) 0.5 mg IVP Q4 PRN PRN Reason: Restlessness Methylprednisolone (Solu-Medrol) 40 mg IVP Q8 [facility] Last Admin: 06/19/17 02:29 Dose: 40 mg Morphine Sulfate (Morphine) 2 mg IVP Q4 PRN PRN Reason: Pain, moderate (4-7) Ondansetron HCl (Zofran Inj) 4 mg IVP Q6 PRN PRN Reason: Nausea/Vomiting Pantoprazole Sodium (Protonix Ec Tab) 40 mg PO DAILY [facility] Last Admin: 06/18/17 09:11 Dose: 40 mg Polyethylene Glycol (Miralax) 17 gm PO DAILY [facility] Last Admin: 06/18/17 09:11 Dose: 17 gm Rivaroxaban (Xarelto) 10 mg PO DAILY [facility] PRN Reason: Protocol Last Admin: 06/18/17 09:12 Dose: 10 mg Sennosides (Senokot Tab) 8.6 mg PO DAILY [facility] Last Admin: 06/18/17 09:11 Dose: 8.6 mg Sucralfate (Carafate Oral Susp) 1 gm PO BID [facility] Last Admin: 06/18/17 16:31 Dose: Not Given - Labs Labs: 06/19/17 04:25 06/19/17 04:25 PT 12.6 Seconds (9.8-13.1) 06/15/17 00:11 INR 1.1 (0.9-1.2) 06/15/17 00:11 APTT 35.9 Seconds (25.6-37.1) 06/15/17 00:11
--- NOTE | 2017-06-19 09:23 | CT ---
PROCEDURE: CT HEAD WITHOUT CONTRAST. HISTORY: AMS COMPARISON: 06/15/2017 TECHNIQUE: Axial computed tomography images were obtained through the head/brain without intravenous contrast. Radiation dose: Total exam DLP = 1327.02 mGy-cm. This CT exam was performed using one or more of the following dose reduction techniques: Automated exposure control, adjustment of the mA and/or kV according to patient size, and/or use of iterative reconstruction technique. FINDINGS: HEMORRHAGE: No intracranial hemorrhage. BRAIN: No mass effect or edema. No atrophy or chronic microvascular ischemic changes. VENTRICLES: Unremarkable. No hydrocephalus. CALVARIUM: Unremarkable. PARANASAL SINUSES: Unremarkable as visualized. No significant inflammatory changes. MASTOID AIR CELLS: Unremarkable as visualized. No inflammatory changes. OTHER FINDINGS: None. IMPRESSION: No acute intracranial abnormalities. No significant findings to account for the clinical presentation. Concordant results (preliminary interpretation) provided by [facility]. Procedure Completed: 19:39 Preliminary ([facility]) Report: Dictated and Authenticated: 20:09 Final Interpretation: 09:21 2017.
--- NOTE | 2017-06-19 10:38 | CP.PCM.PN ---
Subjective - Date & Time of Evaluation Date of Evaluation: 06/19/17 Time of Evaluation: 10:00 - Subjective Subjective: Patient , family at bedside. Objective - Vital Signs/Intake and Output Vital Signs (last 24 hours): Temp Pulse Resp BP Pulse Ox 100.6 F H 99 H 20 173/84 H 96 06/19/17 08:00 06/19/17 08:00 06/19/17 08:00 06/19/17 08:00 06/19/17 08:00 - Medications Medications: Current Medications Acetaminophen (Tylenol 325mg Tab) 975 mg PO Q8@0600,1400,2200 [facility] Last Admin: 06/18/17 21:30 Dose: Not Given Cyclobenzaprine HCl (Flexeril) 5 mg PO TID PRN PRN Reason: Muscle spasm Last Admin: 06/17/17 08:15 Dose: 5 mg Diphenhydramine HCl (Benadryl) 25 mg IVP Q6 PRN PRN Reason: Itching / Pruritus Last Admin: 06/15/17 21:48 Dose: 25 mg Docusate Sodium (Colace) 100 mg PO TID [facility] Last Admin: 06/18/17 16:30 Dose: Not Given Azithromycin 500 mg/ Sodium (Chloride) 250 mls @ 250 mls/hr IVPB DAILY [facility] PRN Reason: Protocol Piperacillin Sod/Tazobactam (Sod 2.25 gm/ Sodium Chloride) 100 mls @ 100 mls/ hr IVPB Q8 [facility] PRN Reason: Protocol Last Admin: 06/19/17 02:31 Dose: 100 mls/hr Lorazepam (Ativan) 0.5 mg IVP Q4 PRN PRN Reason: Restlessness Methylprednisolone (Solu-Medrol) 40 mg IVP Q8 [facility] Last Admin: 06/19/17 02:29 Dose: 40 mg Morphine Sulfate (Morphine) 2 mg IVP Q4 PRN PRN Reason: Pain, moderate (4-7) Ondansetron HCl (Zofran Inj) 4 mg IVP Q6 PRN PRN Reason: Nausea/Vomiting Pantoprazole Sodium (Protonix Ec Tab) 40 mg PO DAILY [facility] Last Admin: 06/18/17 09:11 Dose: 40 mg Polyethylene Glycol (Miralax) 17 gm PO DAILY [facility] Last Admin: 06/18/17 09:11 Dose: 17 gm Rivaroxaban (Xarelto) 10 mg PO DAILY [facility] PRN Reason: Protocol Last Admin: 06/18/17 09:12 Dose: 10 mg Sennosides (Senokot Tab) 8.6 mg PO DAILY [facility] Last Admin: 06/18/17 09:11 Dose: 8.6 mg Sucralfate (Carafate Oral Susp) 1 gm PO BID [facility] Last Admin: 06/18/17 16:31 Dose: Not Given - Labs Labs: 06/19/17 04:25 06/19/17 04:25 PT 12.6 Seconds (9.8-13.1) 06/15/17 00:11 INR 1.1 (0.9-1.2) 06/15/17 00:11 APTT 35.9 Seconds (25.6-37.1) 06/15/17 00:11 Assessment and Plan (1) Anemia Status: Acute (2) Thrombocytopenia Status: Acute (3) Cholangiocarcinoma Status: Acute
--- NOTE | 2017-06-19 13:52 | CP.PCM.PRO ---
Pronouncement of Note - Clinical Findings Physical Exam: No Response Verbal/Painful Stimuli, Absent Peripheral Pulses{ Carotid & Femoral}, Absent Heart & Breath Sounds, No Pupillary Light Reflex, No Corneal Reflex, Pupils Fixed & Dilated, Absence of Vital Signs - Pronouncement Time Time of Pronouncement of : 09:51 - Notifications Pronouncement Notifications: Family Notified ( and brother medical proxy at bedside; requesting comfort measures;pt. 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 [id number] Additional Comments: pt. received in bed with Love at bedside. pt. on BIPAP, lethargic, labored respirations, HR 40-SB pt. DNR/DNI, discussed plan of care with / brother who wish to pursue comfort measures. pt. placed on 100% NRB, Hospice eval ordered. 9:50 am called by RN, Tele asystole, pt. examined and found to have no spontaneous movements, no response to verbal or tactile stimuli. pupils fixed dilated, no breath sounds appreciated. no carotid pulse palpable. no heart sounds appreciated. patient pronounded at 9:51 am. Family at bedside. notified.canvas marker/ sharing network notified by RN. Family wishes to have autopsy. Family signed autopsy form. Time of confirmed and witnessed by IVANA Sheldon. [place] edrs completed.
--- NOTE | 2017-06-19 18:36 | CP.PCM.DIS ---
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 Status: Acute Priority: High Hospital Course - Lab Results Lab Results: Most Recent Lab Values WBC 17.3 K/uL (4.8-10.8) H 06/19/17 04:25 RBC 3.44 Mil/uL (4.40-5.90) L 06/19/17 04:25 Hgb 9.8 g/dL (12.0-18.0) L 06/19/17 04:25 Hct 30.8 % (35.0-51.0) L 06/19/17 04:25 MCV 89.6 fl (80.0-94.0) 06/19/17 04:25 MCH 28.5 pg (27.0-31.0) 06/19/17 04:25 MCHC 31.8 g/dL (33.0-37.0) L 06/19/17 04:25 RDW 18.3 % (11.5-14.5) H 06/19/17 04:25 Plt Count 108 K/uL (130-400) L 06/19/17 04:25 MPV 8.2 fl (7.2-11.7) 06/18/17 19:30 Neut % (Auto) 94.6 % (50.0-75.0) H 06/18/17 19:30 Lymph % (Auto) 1.2 % (20.0-40.0) L 06/18/17 19:30 [place] % (Auto) 4.0 % (0.0-10.0) 06/18/17 19:30 Eos % (Auto) 0.0 % (0.0-4.0) 06/18/17 19:30 Baso % (Auto) 0.2 % (0.0-2.0) 06/18/17 19:30 Neut # 18.0 K/uL (1.8-7.0) H 06/18/17 19:30 Lymph # 0.2 K/uL (1.0-4.3) L 06/18/17 19:30 [place] # 0.8 K/uL (0.0-0.8) 06/18/17 19:30 Eos # 0.0 K/uL (0.0-0.7) 06/18/17 19:30 Baso # 0.0 K/uL (0.0-0.2) 06/18/17 19:30 Total Counted Cancelled 06/16/17 06:00 Neutrophils % (Manual) 97 % (42-75) H 06/18/17 19:30 Band Neutrophils % Cancelled 06/16/17 06:00 Lymphocytes % (Manual) 1 % (20-50) L 06/18/17 19:30 Reactive Lymphs % Cancelled 06/16/17 06:00 Monocytes % (Manual) 2 % (0-10) 06/18/17 19:30 Eosinophils % (Manual) 1 % (0-7) 06/15/17 00:11 Basophils % (Manual) Cancelled 06/16/17 06:00 Metamyelocytes % Cancelled 06/16/17 06:00 Myelocytes % Cancelled 06/16/17 06:00 Promyelocytes % Cancelled 06/16/17 06:00 Blast Cells % Cancelled 06/16/17 06:00 Plasma Cell % (Manual) Cancelled 06/16/17 06:00 Nucleated RBC % Cancelled 06/16/17 06:00 Hypersegmented Polys Cancelled 06/16/17 06:00 Smudge Cells Cancelled 06/16/17 06:00 Toxic Granulation Cancelled 06/16/17 06:00 Dohle Bodies Cancelled 06/16/17 06:00 Michael Rods Cancelled 06/16/17 06:00 Platelet Estimate Decreased (NORMAL) L 06/18/17 19:30 Plt Clumps, EDTA Cancelled 06/16/17 06:00 Large Platelets Cancelled 06/16/17 06:00 Giant Platelets Cancelled 06/16/17 06:00 RBC Morphology Cancelled 06/16/17 06:00 Polychromasia Cancelled 06/16/17 06:00 Hypochromasia (manual) Moderate 06/15/17 00:11 Poikilocytosis (manual Cancelled 06/16/17 06:00 Basophilic Stippling Cancelled 06/16/17 06:00 Anisocytosis (manual) Slight 06/18/17 19:30 Microcytosis (manual) Cancelled 06/16/17 06:00 Macrocytosis (manual) Cancelled 06/16/17 06:00 Spherocytes Cancelled 06/16/17 06:00 Sickle Cells Cancelled 06/16/17 06:00 Target Cells Cancelled 06/16/17 06:00 Tear Drop Cells Cancelled 06/16/17 06:00 Ovalocytes Slight 06/18/17 19:30 Stomatocytes Cancelled 06/16/17 06:00 Helmet Cells Cancelled 06/16/17 06:00 [place] Bodies Cancelled 06/16/17 06:00 Hemal Cells Cancelled 06/16/17 06:00 Acanthocytes (Spur) Cancelled 06/16/17 06:00 Rouleaux Cancelled 06/16/17 06:00 Schistocytes Cancelled 06/16/17 06:00 Retic Count 3.1 % (0.5-1.5) H 06/16/17 06:00 PT 12.6 Seconds (9.8-13.1) 06/15/17 00:11 INR 1.1 (0.9-1.2) 06/15/17 00:11 APTT 35.9 Seconds (25.6-37.1) 06/15/17 00:11 D-Dimer, Quantitative 884 ng/mlDDU (0-230) H 06/15/17 00:11 pCO2 30 mm/Hg (35-45) L 06/19/17 06:45 pO2 180 mm/Hg (80-100) H 06/19/17 06:45 HCO3 30.3 mmol/L (21-28) H 06/19/17 06:45 ABG pH 7.59 (7.35-7.45) H 06/19/17 06:45 ABG Total CO2 29.7 mmol/L (22-28) H 06/19/17 06:45 ABG O2 Saturation 100.0 % (95-98) H 06/19/17 06:45 ABG O2 Content 11.1 ML/dL (15-23) L 06/19/17 06:45 ABG Base Excess 6.8 mmol/L (-2.0-3.0) H 06/19/17 06:45 ABG Hemoglobin 7.8 g/dL (11.7-17.4) L 06/19/17 06:45 ABG Carboxyhemoglobin 0.8 % (0.5-1.5) 06/19/17 06:45 POC ABG HHb (Measured) 0.0 % (0.0-5.0) 06/19/17 06:45 ABG Methemoglobin 1.7 % (0.0-3.0) 06/19/17 06:45 ABG O2 Capacity 11.1 mL/dL (16-24) L 06/19/17 06:45 [place] Test Yes 06/19/17 06:45 A-a O2 Difference 68.0 mm/Hg 06/19/17 06:45 Hgb O2 Saturation 97.4 % (95.0-98.0) 06/19/17 06:45 Vent Mode Bipap 06/19/17 06:45 Mechanical Rate 16 06/19/17 06:45 FiO2 40.0 % 06/19/17 06:45 Inspiratory BiPAP 16 06/19/17 06:45 Expiratory BiPAP 8 06/19/17 06:45 Sodium 135 mmol/l (132-148) 06/19/17 04:25 Potassium 5.0 MMOL/L (3.6-5.0) 06/19/17 04:25 Chloride 96 mmol/L (98-107) L 06/19/17 04:25 Carbon Dioxide 29 mmol/L (22-30) 06/19/17 04:25 Anion Gap 15 (10-20) 06/19/17 04:25 BUN 54 mg/dl (9-20) H 06/19/17 04:25 Creatinine 2.1 mg/dl (0.8-1.5) H 06/19/17 04:25 Est GFR ( Amer) 40 06/19/17 04:25 Est GFR (Non-Af Amer) 33 06/19/17 04:25 Random Glucose 107 mg/dL (75-110) 06/19/17 04:25 Calcium 9.4 mg/dL (8.4-10.2) 06/19/17 04:25 Ferritin 1090.0 ng/Ml (17.9-464) H 06/16/17 06:00 Total Bilirubin 0.9 mg/dl (0.2-1.3) 06/18/17 19:30 AST 35 U/L (17-59) 06/18/17 19:30 ALT 34 U/L (21-72) 06/18/17 19:30 Alkaline Phosphatase 140 U/L (38-126) H 06/18/17 19:30 Ammonia < 9 umo/L (16-60) L 06/18/17 17:46 Total Creatine Kinase 31 U/L (55-170) L 06/18/17 12:39 Troponin I 0.0650 ng/mL (0.00-0.120) 06/18/17 19:30 Total Protein 6.7 G/DL (6.3-8.2) 06/18/17 19:30 Albumin 3.2 g/dL (3.5-5.0) L 06/18/17 19:30 Globulin 3.5 gm/dL (2.2-3.9) 06/18/17 19: Albumin/Globulin Ratio 0.9 (1.0-2.1) L 06/18/17 19:30 Vitamin B12 > 1000 pg/mL (239-931) H 06/16/17 06:00 Folate 6.2 ng/mL 06/16/17 06:00 Urine Color Yellow (YELLOW) 06/18/17 22:00 Urine Clarity Cloudy (Clear) 06/18/17 22:00 Urine pH 6.0 (5.0-8.0) 06/18/17 22:00 Ur Specific [place] 1.013 (1.003-1.030) 06/18/17 22:00 Urine Protein 100 mg/dL (NEGATIVE) 06/18/17 22:00 Urine Glucose (UA) Neg mg/dL (Normal) 06/18/17 22:00 Urine Ketones Negative mg/dL (NEGATIVE) 06/18/17 22:00 Urine Blood Large (NEGATIVE) 06/18/17 22:00 Urine Nitrate Negative (NEGATIVE) 06/18/17 22:00 Urine Bilirubin Negative (NEGATIVE) 06/18/17 22:00 Urine Urobilinogen 0.2-1.0 mg/dL (0.2-1.0) 06/18/17 22:00 Ur Leukocyte Esterase Neg Mary[place]/uL (Negative) 06/18/17 22:00 Urine RBC (Auto) 12 /hpf (0-3) H 06/18/17 22:00 Urine Microscopic WBC 5 /hpf (0-5) 06/18/17 22:00 Ur Squamous Epith Cells < 1 /hpf (0-5) 06/18/17 22:00 Ur Random Creatinine 47.1 mg/dL 06/18/17 22:00 Ur Random Sodium 71 mmol/L 06/18/17 22:00 Blood Type A POSITIVE 06/16/17 04:00 Blood Type Confirm A POSITIVE 06/15/17 19:43 Antibody Screen Negative 06/16/17 04:00 Crossmatch See Detail 06/16/17 04:00 BBK History Checked Patient has bt 06/16/17 04:00 Discharge Exam - Head Exam Head Exam: ATRAUMATIC, NORMAL INSPECTION, NORMOCEPHALIC Discharge Plan - Follow Up Plan Condition: FAIR Disposition: WITH WITHOUT AUTOPSY
--- NOTE | 2017-06-20 11:26 | CARD ---
APPROVED REPORT EKG Measurement Heart [id number] <Conclusion> Normal sinus rhythm Minimal voltage criteria for LVH, may be normal variant Borderline ECG
== END 2017-06-19 13:10 | DRG 435 ==
LOC: H.ER 23:09 → H.ERHOLD 06-15 01:22 → H.TEL 06-15 02:59 → OBSVTOIN 06-16 21:23 → H.TEL 06-18 19:51
PROVIDERS: ADMIT Internal Medicine; ATTEND Internal Medicine
PROC: 30233N1 Transfusion of Nonautologous Red Blood Cells into Peripheral Vein, Percutaneous Approach (ICD-10-PCS; principal; 2017-06-16)
DX: C23 Malignant neoplasm of gallbladder (principal); G93.40 Encephalopathy, unspecified; N17.9 Acute kidney failure, unspecified; C78.00 Secondary malignant neoplasm of unspecified lung; C78.7 Secondary malignant neoplasm of liver and intrahepatic bile duct; D64.81 Anemia due to antineoplastic chemotherapy; E87.1 Hypo-osmolality and hyponatremia; D69.59 Other secondary thrombocytopenia; T45.1X5A Adverse effect of antineoplastic and immunosuppressive drugs, initial encounter; Z51.5 Encounter for palliative care; Z86.711 Personal history of pulmonary embolism; F17.210 Nicotine dependence, cigarettes, uncomplicated; Z86.718 Personal history of other venous thrombosis and embolism; I10 Essential (primary) hypertension; I95.1 Orthostatic hypotension; D63.8 Anemia in other chronic diseases classified elsewhere; E87.5 Hyperkalemia; R09.02 Hypoxemia; R32 Unspecified urinary incontinence; N13.9 Obstructive and reflux uropathy, unspecified; R21 Rash and other nonspecific skin eruption; Z66 Do not resuscitate